=== PATIENT | female | born 1955 | race Caucasian/White ===

== ENCOUNTER 2019-08-31 09:12 | Outpatient (CLI) | payer MEDICARE, OTHER, SELFPAY ==
--- NOTE | ~2019-08-31 | CT_ITS ---
EXAMINATION: CT chest high resolution wo hi EXAM DATE: 08/31/2019 09:37 INDICATION: Shortness of breath, past smoker. TECHNIQUE: Spiral CT of the chest without contrast. HRCT. Axial, coronal and sagittal images were re viewed. Coronal maximum intensity pixel images of chest reviewed. The dose-length product (DLP) for this examination was 136.63 mGy-cm. The exposure was tailored according to patient size (auto mA ex posure control), and iterative reconstruction (ASIR) was used as additional dose reduction technique. Comparison is made to prior examination from 12/05/2016. FINDINGS: There are multiple scattered pulmonary nodules 4 mm or less, most unchanged but some are n ew compared to prior study. Most likely granulomas. There are no pleural or pericardial effusions. Tracheobronchial tree is patent. There is no mediastinal, hilar or axillary lymphadenopathy. Ther e is no pneumothorax. Heart normal in size. There is moderate coronary arterial calcification, ar terial sclerosis. Surgical changes from gastric bypass and cholecystectomy. There is moderate thorac ic spondylosis without osteoblastic or osteolytic lesions identified. IMPRESSION: 1. Scattered small nodules likely postinfectious. Reviewed, dictated and finalized at location A.
--- NOTE | 2019-08-31 10:48 | PCRCNOTE ---
UNABLE TO COMPLETE 6MWT, PT RECENTLY BROKE HER FOOT, WILL NEED TO RESCHEDULE AT A LATER DATE.
--- NOTE | 2019-09-16 12:51 | WPDPFTINT ---
PFT Interpretation PFT Interpretation: DOS: 08/31/2019 REQUESTING: Dr. Cox REASON FOR TESTING: Shortness of breath with exertion PULMONARY FUNCTION TESTS There results are reproducible. Spirometry: FEV1 120%, normal. FVC 107%. Normal FEV1%. FEF25/75 is 116%, increased 27% with bronchodilator. Lung volumes: Total lung capacity 114% normal. Increased residual volume 127% consistent with air trapping. Normal airway resistance. Diffusion: DLCO 106% normal. Flow volume loop: Normal. IMPRESSION: Mild air trapping which is consistent with an obstructive process. Lung volumes are higher than expected, a normal variant. There is a significant response to bronchodilator in the small airways which can be seen in asthma. Clinical correlation is recommended. Maryana Chan MD
== END 2019-08-31 09:13 | disposition home or self-care (01) ==
PROVIDERS: PCP Nurse Practitioner Family; Visit Provider Internal Medicine Critical Care Medicine
DX: R06.02 Shortness of breath (principal); R91.8 Other nonspecific abnormal finding of lung field
CPT/HCPCS: 71250; 94060; 94726; 94729

== ENCOUNTER 2019-10-20 11:29 | Outpatient (CLI) | payer MEDICARE, OTHER, SELFPAY | END 2019-10-20 11:30 | disposition home or self-care (01) | PROVIDERS: PCP Nurse Practitioner Family; Visit Provider Internal Medicine Critical Care Medicine | DX: R06.02 Shortness of breath (principal) | CPT/HCPCS: 36415; 86331; 86606; 86609 ==

== ENCOUNTER 2020-04-24 10:02 | Outpatient (CLI) | payer MEDICARE, OTHER, SELFPAY ==
[2020-04-24 10:00] VITALS: PULSE 76; O2SAT 95
[2020-04-24 10:05] VITALS: PULSE 80; O2SAT 84
[2020-04-24 10:10] VITALS: PULSE 88; O2SAT 85
[2020-04-24 10:15] VITALS: PULSE 89; O2SAT 87
[2020-04-24 10:20] VITALS: PULSE 87; O2SAT 90
[2020-04-24 10:35] VITALS: PULSE 80; O2SAT 94
--- NOTE | 2020-04-24 14:55 | HOMEO2EVAL ---
Home Oxygen Evaluation RC: Home Oxygen (O2) Evaluation Start: 04/24/20 14:52 Freq: Status: Active Protocol: RPE Activity Type Activity Date Activity User E-Sign Co-Sign Detail Recorded Client Recorded Date Recorded By Document 04/24/20 10:00 [email or web address] [email or web address] 04/24/20 14:55 DJO Document 04/24/20 10:05 DJO [email or web address] 04/24/20 14:55 DJO Document 04/24/20 10:10 [email or web address] [email or web address] 04/24/20 14:55 DJO Document 04/24/20 10:15 [email or web address] [email or web address] 04/24/20 14:55 DJO Document 04/24/20 10:20 [email or web address] [email or web address] 04/24/20 14:55 DJO Document 04/24/20 10:35 [email or web address] [email or web address] 04/24/20 14:55 DJO 04/24/20 04/24/20 04/24/20 10:00 10:05 10:10 Home O2 Evaluation Test Phase Resting Exercise Exercise Oxygen Delivery Room Air Room Air Nasal Cannula Oxygen Flow Rate (L/min) 1 Pulse Oximetry (90-100 %) 95 84 L 85 L Pulse Rate (60-100 beats/min) 76 80 88 Activity Tolerance Ambulation Distance (feet) 04/24/20 04/24/20 04/24/20 10:15 10:20 10:35 Home O2 Evaluation Test Phase Exercise Exercise Resting Oxygen Delivery Nasal Cannula Nasal Cannula Room Air Oxygen Flow Rate (L/min) 2 3 Pulse Oximetry (90-100 %) 87 L 90 94 Pulse Rate (60-100 beats/min) 89 87 80 Activity Tolerance Good Ambulation Distance (feet) 700
== END 2020-04-24 10:03 | disposition home or self-care (01) ==
LOC: ANHPFT 10:03
PROVIDERS: PCP Nurse Practitioner Family; Visit Provider Internal Medicine Critical Care Medicine
DX: R06.02 Shortness of breath (principal)
CPT/HCPCS: 94618

== ENCOUNTER 2021-11-08 14:05 | Outpatient (CLI) | payer MEDICARE, OTHER, SELFPAY ==
--- NOTE | ~2021-11-08 | MM_ITS ---
EXAMINATION: MM screening gilberto BI w yesica HISTORY: Screening mammogram, family history of breast cancer in her mother. TECHNIQUE: Craniocaudal and mediolateral oblique 3-D tomosynthesis images were obtained and synthetic 2-D images were generated. CAD analysis was submitted and interpreted. COMPARISON: 10/07/2017, 05/27/2016 BREAST PARENCHYMAL COMPOSITION: The breasts are almost entirely fatty. FINDINGS: There is no suspicious mass, calcification, or architectural distortion to suggest malignan cy in either breast. There has been no suspicious interval change. IMPRESSION: 1. No mammographic evidence of malignancy. 2. Recommend routine screening mammography in one year. BI-RADS Category 1: Negative Reviewed, dictated and finalized at location A.
--- NOTE | ~2021-11-08 | DEXA_ITS ---
Bone Density Report Name: KB FIGUEROA Age: 65 Sex: Female Ethnicity: White Date of : 1955 Indication: osteopenia; height loss; prior fracture; cancer; asthma or emphysema; postmenopausal Referring Provider: LILLIAN, TUYET Study: Bone densitometry was performed. Exam Date: November 08, 2021 Accession number: [id number] Bone Density: Region BMD T-score Z-score Classification AP Spine(L1-L4) 0.959 -0.8 1.1 Normal Femoral Neck (Left) 0.586 -2.4 -0.8 Osteopenia Total Hip (Left) 0.639 -2.5 -1.2 Osteoporosis Femoral Neck (Right) 0.610 -2.1 -0.5 Osteopenia Total Hip (Right) 0.632 -2.5 -1.2 Osteoporosis Total Hip Mean 0.636 -2.5 -1.2 Osteoporosis World Health Organization criteria for BMD impression classify patients as: Normal (T-score at or above -1.0), Osteopenia (T-score between -1.0 and -2.5), or Osteoporosis (T-score at or below -2.5). 10-year Fracture Risk: FRAX not reported because: Some T-score for Spine Total or Hip Total or Femoral Neck at or below -2.5 Previous Exams: Region Exam Age BMD T-score BMD Change BMD Change Date g/cm2 vs Baseline vs Previous AP Spine (L1-L4) 11/08/2021 65 0.959 -0.8 -0.223 (-18.9% -0.046 (-4.6%) 10/07/2017 61 1.005 -0.4 -0.177 (-15.0% -0.085 (-7.8%) 04/07/2015 59 1.091 0.4 -0.091 (-7.7%) -0.091 (-7.7%) 12/03/2012 56 1.182 1.2 Total Hip(Left) 11/08/2021 65 0.639 -2.5 -0.244 (-27.6% -0.111 (-14.8% 10/07/2017 61 0.751 -1.6 -0.133 (-15.1% -0.066 (-8.0%) 04/07/2015 59 0.816 -1.0 -0.068 (-7.6%) -0.068 (-7.6%) 12/03/2012 56 0.884 -0.5 Total Hip(Right) 11/08/2021 65 0.632 -2.5 -0.217 (-25.6% -0.127 (-16.7% 10/07/2017 61 0.759 -1.5 -0.090 (-10.6% -0.032 (-4.0%) 04/07/2015 59 0.791 -1.2 -0.058 (-6.9%) -0.058 (-6.9%) 12/03/2012 56 0.849 -0.8 *Denotes significance at 95% confidence level, LSC for AP Spine = 0.022 g/cm2, LSC for Total Hip = 0.027 g/cm2 # Denotes dissimilar scan types or analysis methods Clinical Information Provided by Patient: Has had a low trauma fracture Has used the following medications: Vitamin D Has the following medical conditions: Asthma or Emphysema, Cancer Patient maximum height was 68 Menopause Age: 49 No regular weight bearing exercise Drinks caffeinated beverages Onset of menses at age 11 Number of children 5 Impression: The patient has established osteoporosis, based on the Left Total Hip T-score and th
== END 2021-11-08 14:06 | disposition home or self-care (01) ==
PROVIDERS: PCP Nurse Practitioner Family; Visit Provider Nurse Practitioner Family
DX: Z12.31 Encounter for screening mammogram for malignant neoplasm of breast (principal); Z78.0 Asymptomatic menopausal state; M81.0 Age-related osteoporosis without current pathological fracture; M85.852 Other specified disorders of bone density and structure, left thigh; M85.851 Other specified disorders of bone density and structure, right thigh
CPT/HCPCS: 77063; 77067; 77080

== ENCOUNTER 2022-10-31 16:09 | Emergency (ER) | payer MEDICARE, OTHER, SELFPAY ==
--- NOTE | ~2022-10-31 | XR_ITS ---
EXAMINATION: XR chest 2V DATE: 10/31/2022 16:37 INDICATION: Dyspnea. TECHNIQUE: Frontal and lateral views of the chest were obtained. COMPARISON: Chest 2 views 10/27/2018 FINDINGS: There is mild scarring at the lung apices. There is mild atelectasis in left lower lung zon e. No pleural effusion or pneumothorax. The heart size is normal. Surgical clips in the right upper q uadrant are likely from cholecystectomy. IMPRESSION: 1. Mild atelectasis in left lower lung zone and mild scarring at the lung apices. Reviewed, dictated and finalized at location E. IMPRESSION: 1. Mild atelectasis in left lower lung zone and mild scarring at the lung apice s.
--- NOTE | ~2022-10-31 | CT_ITS ---
EXAMINATION: CT pelvis wo con DATE: 10/31/2022 17:39 INDICATION: Bilateral hip pain. Fall. TECHNIQUE: Computed tomography (CT) of the pelvis was performed without intravenous contrast. Automat ed exposure control and iterative reconstruction technique were employed. The dose-length product was 263.31 mGy-cm. COMPARISON: CT abdomen and pelvis 03/24/2018 FINDINGS: There is a calcified fibroid in the uterus. There are no pathologically enlarged lymph node s. There is no free intraperitoneal fluid. There is a filter in the inferior vena cava. Bone alignmen t is normal. No fracture. There is mild osteoarthritis of the hips. There is severe osteoarthritis of right sacroiliac joint and moderate osteoarthritis of left sacroiliac joint. There is moderate lumba r spondylosis. Osteitis pubis is noted. IMPRESSION: 1. No fracture. 2. Mild osteoarthritis of the hips. Reviewed, dictated and finalized at location E.
--- NOTE | ~2022-10-31 | CT_ITS ---
EXAMINATION: CT brain wo con DATE: 10/31/2022 17:38 INDICATION: Head injury. TECHNIQUE: Computed tomography (CT) of the head was performed without intravenous contrast. The mA wa s adjusted according to patient size. Iterative reconstruction technique was employed. The dose-lengt h product was 908.00 mGy-cm. COMPARISON: Head CT 10/11/2014 FINDINGS: There is no intracranial hemorrhage, acute infarction, or abnormal intracranial mass lesion . The ventricles are normal in size. There is mucosal thickening in the paranasal sinuses. There are likely changes of ocular lens replacement surgeries. The mastoid air cells are normal. IMPRESSION: 1. Normal brain. Reviewed, dictated and finalized at location E. IMPRESSION: 1. Normal brain.
[2022-10-31 16:14] VITALS: BP 115/72; PULSE 88; RESP 16; TEMP 37.2; O2SAT 99
--- NOTE | 2022-10-31 16:16 | ECG_ITS ---
Measurements Intervals [place] Rate: 96 P: 77 MI: 218 QRS: 34 QRSD: 86 T: 27 QT: 335 QTc: 424 Interpretive Statements SINUS RHYTHM EARLY PRECORDIAL R/S TRANSITION BORDERLINE ST-T WAVE ABNORMALITY- ANT/INF LEADS BASELINE ARTIFACT- I, II, III, AVR, AVL, AVF, V1-V6 BORDERLINE ECG COMPARED TO ECG 10/27/2018 18:21:48 NO SIGNIFICANT CHANGES Electronically Signed On 10-31-2022 21:07:58 CDT by See Avila D.O.
[2022-10-31 16:37] LABS: Basophils Percent Auto 0.5 % (0.2-1.2); Eosinophils Absolute Auto 0.1 K/mm3 (0-0.3); Eosinophils Percent Auto 1.4 % (0-4.4); Hematocrit 40.9 % (37.0-47.0); Hemoglobin 13.6 g/dL (12.0-15.0); Immature Granulocyte Absolute 0.01 K/mm3 (0.00-0.031); Immature Granulocyte Percent A 0.1 % (0-0.5); Lymphocytes Absolute Auto 2.64 K/mm3 (0.9-3.2); Lymphocytes Percent Auto 30.6 % (18.3-44.2); Mean Corpuscular HGB Conc 33.3 g/dl (32-36); Mean Corpuscular Hemoglobin 28.9 pg (26-34); Mean Platelet Volume 11.3 fl (7.4-10.4); Monocytes Absolute Auto 0.6 K/mm3 (0.1-0.6); Monocytes Percent Auto 7.2 % (2.6-8.5); Neutrophils Absolute Auto 5.2 K/mm3 (1.3-6.7); Neutrophils Percent Auto 60.2 % (45.5-73.1); Platelet Count Result 309 k/mm3 (150-375); Red Cell Distribution Width 12.3 % (11.5-14.5); White Blood Count 8.6 K/mm3 (4.5-10.0)
[2022-10-31 16:52] LABS: Alanine Aminotransferase 18 U/L (6-35); Albumin Level 4.6 g/dL (3.5-5.1); Alkaline Phosphatase 88 U/L (38-126); Anion Gap 9 mmol/L (8-16); Aspartate Amino Transferase 31 U/L (14-36); Bilirubin,Total 0.8 mg/dL (0.2-1.3); Blood Urea Nitrogen 16 mg/dL (7-17); Carbon Dioxide 32 mmol/L (22-30); Chloride 97 mmol/L (98-107); Estimated CRCL calculation 28 ml/min; Estimated Glomerular Filt Rate 35; Glucose 98 mg/dL (65-110); Potassium 2.8 mmol/L (3.4-5.0); Sodium 138 mmol/L (137-145)
--- NOTE | 2022-10-31 17:22 | ED.GENADULT ---
HPI - General Adult General Chief complaint: Shortness of Breath/Dyspnea <Jessica Caceres PA-C - Last Filed: 10/31/22 20:21> Stated complaint: Shortness of breath <SHAI Figueroa Last Filed: 10/31/22 20:21> Time Seen by Provider: 10/31/22 16:36 <SHAI Figueroa Last Filed: 10/31/22 20:21> Source: patient <SHAI Figueroa Last Filed: 10/31/22 20:21> Mode of arrival: ambulatory <SHAI Figueroa Last Filed: 10/31/22 20:21> Limitations: no limitations <SHAI Figueroa Last Filed: 10/31/22 20:21> History of Present Illness HPI narrative: Patient is a 66-year-old female, with PMH of COPD/asthma chronically on 3L NC, who presents to the ED with multiple complaints. Patient's main concern is having pain in all of her bones for the past 1+ year. She states she has several allergies to medications and is only able to take tramadol for pain. She does have a prescription for this at home. She reports a history of frequent falls recently. She states she fell 2 weeks ago and fell onto her right hip. She complains of pain to her bilateral hips. She fell again this morning trying to get out of bed and did hit her head on the nightstand. Denied LOC. Denied any dizziness or lightheadedness prior to the falls. She states she just becomes weak and falls. Patient lives with family. She denies abdominal pain, vision changes, cough or cold symptoms, worsening shortness of breath, chest pain, fevers, numbness, focal weakness, syncope. <SHAI Figueroa Last Filed: 10/31/22 20:21> Related Data Home medications: Home Medications Medication Instructions Recorded Confirmed diphenhydramine HCl 50 mg capsule 50 mg PO Q6H PRN 08/10/19 10/05/20 ergocalciferol (vitamin D2) 1,250 1,250 mcg PO WEEKLY 08/10/19 10/05/20 mcg (50,000 unit) capsule (Vitamin D2) furosemide 80 mg tablet 80 mg PO QAM 08/10/19 10/05/20 loratadine 10 mg tablet 10 mg PO DAILY 08/10/19 10/05/20 montelukast 10 mg tablet 10 mg PO DAILY 08/10/19 10/05/20 (Singulair) nitroglycerin 0.4 mg sublingual 0.4 mg sublingual Q5M PRN 08/10/19 10/05/20 tablet ondansetron HCl 8 mg tablet 8 mg PO Q8H 08/10/19 10/05/20 pantoprazole 40 mg tablet,delayed 40 mg PO QAM 08/10/19 10/05/20 release potassium chloride 10 mEq 10 meq PO DAILY 08/10/19 10/05/20 tablet,extended release rivaroxaban 20 mg tablet 20 mg PO DAILY 08/10/19 10/05/20 ropinirole 0.5 mg tablet 0.5 mg PO BID 08/10/19 10/05/20 spironolactone 25 mg tablet 25 mg PO DAILY 08/10/19 10/05/20 sucralfate 1 gram tablet 1 gm PO TID 08/10/19 10/05/20 tramadol 50 mg tablet 50 mg PO Q6H PRN 08/10/19 10/05/20 lorazepam 2 mg tablet (Ativan) 2 mg PO DAILY PRN 08/11/19 10/05/20 pseudoephedrine HCl 120 mg 120 mg PO Q12H 10/08/19 10/05/20 tablet,extended release (Sudafed 12 Hour) cyanocobalamin (vitamin B-12) 1,000 mcg subcut MONTHLY 10/12/19 10/05/20 1,000 mcg/mL injection kit <Jessica Caceres PA-C - Last Filed: 10/31/22 20:21> Allergies/adverse reactions: Allergies Allergy/AdvReac Type Severity Reaction Status Date / Time codeine Allergy Severe HIVES Verified 10/31/22 16:10 fluoxetine Allergy Severe HIVES Verified 10/31/22 16:10 hydrocodone Allergy Severe HIVES Verified 10/31/22 16:10 iodine Allergy Unknown N/V Verified 10/31/22 16:10 morphine Allergy Unknown Unknown Verified 10/31/22 16:10 prednisone Allergy Unknown Palpitation Verified 10/31/22 16:10 s theophylline Allergy Unknown Hives / Verified 10/31/22 16:10 Red Face Contrast Media Allergy Unknown Unknown Uncoded 10/31/22 16:10 <Jessica Caceres PA-C - Last Filed: 10/31/22 20:21> Review of Systems Review of Systems: CONSTITUTIONAL: Denies fever, chills, or sweats. EYES: Denies visual changes. CARDIOVASCULAR: Denies chest pain. RESPIRATORY: Denies cough or dyspnea. GASTROINTESTINAL: See HPI. MUSCULOSKELETAL: See
[2022-10-31 17:31] LABS: Magnesium 2.3 mg/dL (1.6-2.3)
[2022-10-31 17:43] LABS: Troponin I < 0.012 ng/mL (0.000-0.034)
[2022-10-31] MEDS: SODIUM CHLORIDE 0.9% IV 1,000 ML 999 ML IV CONT (17:49)
[2022-10-31] MEDS: POTASSIUM CHLORIDE 20 MEQ PACKET (FOR LIQUID) 40 MEQ PO ×2 (18:25→21:56)
[2022-10-31] MEDS: traMADol HCL (*CRX) 50 MG TABLET PO (18:25)
[2022-10-31] MEDS: KCL 20 MEQ/SW 100 ML 100 ML 50 MEQ IVPB (19:11)
[2022-10-31 19:14] VITALS: BP 93/79; PULSE 67; RESP 18; O2SAT 100
[2022-10-31 19:56] VITALS: BP 113/94; PULSE 63; RESP 18; O2SAT 99
[2022-10-31 21:46] LABS: Anion Gap 3 mmol/L (8-16); Blood Urea Nitrogen 15 mg/dL (7-17); Calcium 8.1 mg/dL (8.4-10.2); Carbon Dioxide 38 mmol/L (22-30); Chloride 98 mmol/L (98-107); Estimated CRCL calculation 30 ml/min; Estimated Glomerular Filt Rate 38; Glucose 91 mg/dL (65-110); Potassium 3.1 mmol/L (3.4-5.0); Sodium 139 mmol/L (137-145)
== END 2022-10-31 23:26 | disposition home or self-care (01) ==
PROVIDERS: Emergency Medicine; Emergency Provider Physician Assistant; PCP Nurse Practitioner Family
DX: R52 Pain, unspecified (principal); R06.02 Shortness of breath; I50.9 Heart failure, unspecified; J44.9 Chronic obstructive pulmonary disease, unspecified; E87.6 Hypokalemia; F41.9 Anxiety disorder, unspecified; Z79.01 Long term (current) use of anticoagulants; Z87.891 Personal history of nicotine dependence; W06.XXXA Fall from bed, initial encounter
CPT/HCPCS: 36415; 70450; 71046; 72192; 80048; 80053; 83735; 84484; 85025; 93005; 96361; 96365; 96366; 99284; A9270; J3480; J7030

== ENCOUNTER 2023-06-25 13:31 | Outpatient (CLI) | payer MEDICARE, OTHER, SELFPAY ==
[2023-06-25 14:40] VITALS: PULSE 78; O2SAT 97
[2023-06-25 15:10] VITALS: PULSE 90; O2SAT 95
[2023-06-25 15:15] VITALS: PULSE 80; O2SAT 100
--- NOTE | 2023-06-25 15:24 | HOMEO2EVAL ---
Evaluation was performed at [facility] Home Oxygen Evaluation RC: Home Oxygen (O2) Evaluation Start: 06/25/23 15:20 Freq: Status: Active Protocol: RPE Activity Type Activity Date Activity User E-sign Co-sign Detail Recorded Client Recorded Date Recorded By Document 06/25/23 14:40 [email or web address] [id number] 06/25/23 15:23 DJO Document 06/25/23 15:10 [email or web address] [email or web address] 06/25/23 15:23 DJO Document 06/25/23 15:15 [email or web address] [email or web address] 06/25/23 15:23 DJO 06/25/23 06/25/23 06/25/23 14:40 15:10 15:15 Home O2 Evaluation [Oxygen] -Test Phase Resting Exercise Resting -Oxygen Delivery Room Air Room Air Room Air [Pulse Oximetry] -Pulse Oximetry (90-100 %) 97 95 100 [Pulse Rate] -Pulse Rate (60-100 beats/min) 78 90 80 [Evaluation] -Activity Tolerance Good [Exercise] -Ambulation Distance (feet) 1,000 -Ambulation Distance (meters) 304.80 [Charges] -Evaluation Charges O2 Evaluation by Pulmonary
--- NOTE | 2023-06-25 16:58 | WPDPFTINT ---
PFT Procedure Performed PFT Procedure Performed Spirometry with Pre/Post Bronchodilator Plethysmography (Lung Vol) Diffusing Cap (DLCO) Flow Vol Loop PFT Interpretation This is a pulmonary function test with pre and post-bronchodilator spirometry, plethysmography and diffusing capacity. The test was performed and results interpreted in accordance with the 2019 and 2005 ATS/ERS Task Force guidelines respectively using the Global Lung Function Initiative-2012 reference equations. Patient demonstrated good effort and cooperation. Reproducibility criteria were met. The quality of the pre bronchodilator spirometry maneuver was Grade B and post bronchodilator spirometry maneuver was Grade B. Findings: Spirometry: The contour the inspiratory and expiratory flow tracing are normal. The pre bronchodilator FVC is 3.30 L, 105% predicted. The pre bronchodilator FEV1 is 2.58 L, 106% predicted. The pre bronchodilator FEV1: FVC ratio 78%. The post bronchodilator FVC is 3.31 L, representing no change. The post bronchodilator FEV1 is 2.65 L, representing a 2% increase. The post bronchodilator FEV1: FVC ratio was 80%. Plethysmography: The total lung capacity is 5.41 L, 101% predicted. The functional residual capacity is 4.08 L, 133% predicted. The residual volume is 2.10 L, 93% predicted. Diffusing capacity: The diffusing capacity unadjusted for hemoglobin and carboxyhemoglobin is 17.6, 82% predicted. The diffusing capacity adjusted for alveolar volume is 3.58, 85% predicted. In comparison to prior pulmonary function testing performed on 08/31/2019 the post bronchodilator FVC is unchanged from 3.25 L to 3.31 L. The post bronchodilator FEV1 is unchanged from 2.85 L to 2.65 L. The total lung capacity is unchanged from 6.02 L to 5.41 L. The functional residual capacity is unchanged from 4.50 L to 4.08 L. The residual volume is decreased from 2.59 L to 2.10 L. The diffusing capacity unadjusted for hemoglobin and carboxyhemoglobin is decreased from 21.2 to 17.6. The diffusing capacity adjusted for alveolar volume is decreased from 4.39 to 3.58. Impression: The spirometry is normal without evidence of an obstructive abnormality. There is no significant improvement after inhaling a single dose of albuterol. The lung volumes are normal. The diffusing capacity is normal. In comparison to prior pulmonary function testing on 08/31/2019 there has been a greater than anticipated time dependent decrease in the residual volume and diffusing capacity with no significant change in the FVC, FEV1, total lung capacity or functional residual capacity. Clinical correlation is recommended.
== END 2023-06-25 13:32 | disposition home or self-care (01) ==
LOC: ANHPFT 13:32
PROVIDERS: PCP Family Medicine; Visit Provider Physician Assistant
DX: J44.9 Chronic obstructive pulmonary disease, unspecified (principal); R09.02 Hypoxemia
CPT/HCPCS: 94060; 94618; 94726; 94729

== ENCOUNTER 2023-08-14 11:26 | Emergency (ER) | payer MEDICARE, OTHER, SELFPAY ==
--- NOTE | ~2023-08-14 | CT_ITS ---
EXAMINATION: CT brain wo con INDICATION: Weakness and fatigue COMPARISON: 10/31/2022 TECHNIQUE: Standard unenhanced head CT. The dose-length product (DLP) was 605.33 mGy-cm. The mA was a djusted according to patient size. Iterative reconstruction technique was employed. FINDINGS: No acute intraparenchymal hemorrhage. No evidence of mass lesion. No evidence of acute infa rction. There is mild periventricular and subcortical hypodensity probably related to small vessel is chemic disease. There is mild prominence of the sulci and ventricles related to cerebral atrophy. Int racranial calcified cerebral atherosclerosis is noted. No extra-axial collections. No mass effect or midline shift. Changes in the globes are likely from ocular lens surgery. The visualized sinuses and mastoid air cells are well aerated. IMPRESSION: 1. No acute intracranial abnormality. 2. Age related findings. Reviewed, dictated and finalized at location L. INE TOOL BUILDER
--- NOTE | ~2023-08-14 | CT_ITS ---
EXAMINATION: CT abdomen pelvis wo con DATE: 08/14/2023 13:41 INDICATION: Weakness and fatigue, right upper quadrant pain TECHNIQUE: Computed tomography (CT) of the abdomen and pelvis was performed without intravenous contr ast. The dose-length product (DLP) was 473.51 mGy-cm. Automated exposure control and iterative recons truction technique were employed. COMPARISON: 03/24/2018 FINDINGS: Minimal dependent atelectasis is present in the lung bases. The heart size is normal. There are surgical changes in the stomach. Changes of cholecystectomy are noted. There is chronic pneumobi ene. The spleen, pancreas, and right adrenal gland are normal. There are stable adenomas of the left adrenal gland. The right kidney is unremarkable. There is a 2.9 cm cyst of the left kidney. Inferior vena cava filter is noted. No pathologically enlarged abdominal or pelvic lymph nodes are identified. No free intraperitoneal gas or evidence of bowel obstruction. There is moderate lumbar spondylosis. There is chronic sclerosis of the sacroiliac joints, right greater than left. IMPRESSION: 1. No CT correlate for the patient's symptoms. Reviewed, dictated and finalized at location L. CENTER ASSISTANT
--- NOTE | ~2023-08-14 | XR_ITS ---
EXAMINATION: XR chest 2V DATE: 08/14/2023 13:44 INDICATION: Generalized fatigue TECHNIQUE: AP and lateral views of the chest are obtained. COMPARISON: 10/31/2022 FINDINGS: The lungs are free of acute opacities. No pleural effusion or pneumothorax. The cardiomedia stinal silhouette is normal. There is moderate thoracic spondylosis. IMPRESSION: 1. No acute cardiopulmonary abnormality. Reviewed, dictated and finalized at location L. ARE ADVISER
[2023-08-14 11:36] VITALS: BP 122/67; PULSE 86; RESP 20; TEMP 36.4; O2SAT 100
--- NOTE | 2023-08-14 12:09 | ED.SOB ---
HPI - SOB/Dyspnea General Chief Complaint: Shortness of Breath/Dyspnea Stated Complaint: SOB Time Seen by Provider: 08/14/23 12:08 Source: patient and family Mode of arrival: ambulatory Limitations: no limitations History of Present Illness HPI Narrative: 67 years old white female came to the emergency room by private car complaining of general weakness and foggy brain since had COVID April 2023. Currently patient denies any fever, chills, nausea, vomiting, chest pain, shortness of breath or headache. Patient did not take her out with her pills over 2 days, patient on Xarelto. Patient is depressed well with her last away advised the [facility] area Related Data Home Medications Medication Instructions Recorded Confirmed diphenhydramine HCl 50 mg capsule 50 mg PO Q6H PRN 08/10/19 08/12/23 ergocalciferol (vitamin D2) 1,250 1,250 mcg PO WEEKLY 08/10/19 08/12/23 mcg (50,000 unit) capsule (Vitamin D2) furosemide 80 mg tablet 80 mg PO QAM 08/10/19 08/12/23 loratadine 10 mg tablet 10 mg PO DAILY 08/10/19 08/12/23 montelukast 10 mg tablet 10 mg PO DAILY 08/10/19 08/12/23 (Singulair) nitroglycerin 0.4 mg sublingual 0.4 mg sublingual Q5M PRN 08/10/19 08/12/23 tablet ondansetron HCl 8 mg tablet 8 mg PO Q8H 08/10/19 08/12/23 pantoprazole 40 mg tablet,delayed 40 mg PO QAM 08/10/19 08/12/23 release potassium chloride 10 mEq 10 meq PO DAILY 08/10/19 08/12/23 tablet,extended release rivaroxaban 20 mg tablet 20 mg PO DAILY 08/10/19 08/12/23 ropinirole 0.5 mg tablet 0.5 mg PO BID 08/10/19 08/12/23 spironolactone 25 mg tablet 25 mg PO DAILY 08/10/19 08/12/23 sucralfate 1 gram tablet 1 gm PO TID 08/10/19 08/12/23 pseudoephedrine HCl 120 mg 120 mg PO Q12H 10/08/19 08/12/23 tablet,extended release (Sudafed 12 Hour) cyanocobalamin (vitamin B-12) 1,000 mcg subcut MONTHLY 10/12/19 08/12/23 1,000 mcg/mL injection kit tramadol 50 mg tablet 100 mg PO Q6H PRN 08/12/23 08/12/23 Allergies Allergy/AdvReac Type Severity Reaction Status Date / Time codeine Allergy Severe HIVES Verified 08/12/23 10:27 fluoxetine Allergy Severe HIVES Verified 08/12/23 10:27 hydrocodone Allergy Severe HIVES Verified 08/12/23 10:27 iodine Allergy Unknown N/V Verified 08/12/23 10:27 morphine Allergy Unknown Unknown Verified 08/12/23 10:27 prednisone Allergy Unknown Palpitation Verified 08/12/23 10:27 s theophylline Allergy Unknown Hives / Verified 08/12/23 10:27 Red Face Contrast Media Allergy Unknown Hives Uncoded 08/14/23 13:19 Review of Systems Review of Systems: All systems reviewed & are unremarkable except as noted in HPI and below PMFSH Past Medical History Medical History Acute anxiety Biliary stenosis CKD (chronic kidney disease) stage 3, GFR 30-59 ml/min Complicated bereavement COPD (chronic obstructive pulmonary disease) Essential thrombocytosis GERD (gastroesophageal reflux disease) Spastic intestine Surgical History Surgical History History of appendectomy Hx of gastric bypass No pertinent past surgical history Family History Family History Father Hypertension Family history of diabetes mellitus in first degree relative Family history of coronary artery disease Mother Hypertension Family history of diabetes mellitus in first degree relative Family history of coronary artery disease Family history of malignant neoplasm of breast in first degree relative Cerebrovascular accident Heart disease Breast cancer, Onset Age: 74 insitu Sibling Hypertension, Onset Age: 200 Family history of coronary artery disease, Onset Age: 200 Patient's brother is Acute myocardial infarction Sibling COVID-19 long hauler Hyperlipidemia Other Family history of malignant neoplasm of ovary Social History Social History
[2023-08-14 12:45] VITALS: BP 103/76; PULSE 78; RESP 16; TEMP 36.7; O2SAT 97
--- NOTE | 2023-08-14 13:02 | ECG_ITS ---
Measurements Intervals [place] Rate: 78 P: 82 TN: 171 QRS: 12 QRSD: 82 T: 55 QT: 379 QTc: 432 Interpretive Statements SINUS RHYTHM WITH FREQUENT SUPRAVENTRICULAR PREMATURE COMPLEXES LOW-VOLTAGE QRS ABNORMAL RHYTHM ECG COMPARED TO ECG 10/31/2022 16:22:41 NO SIGNIFICANT CHANGES, CURRENT EKG IS OF BETTER QUALITY Electronically Signed On 08-15-2023 12:11:04 [employer] by Luiz Lance M.D.
--- NOTE | 2023-08-14 13:20 | PC.NURSE ---
verified allergy for contrast with patient, reaction is hives. discussed with provider, ok to modify order to be without contrast dye
[2023-08-14 13:26] LABS: Basophils Percent Auto 0.5 % (0.2-1.2); Eosinophils Absolute Auto 0.1 K/mm3 (0-0.3); Eosinophils Percent Auto 2.2 % (0-4.4); Hemoglobin 11.1 g/dL (12.0-15.0); Immature Granulocyte Absolute 0.01 K/mm3 (0.00-0.031); Immature Granulocyte Percent A 0.2 % (0-0.5); Lymphocytes Absolute Auto 1.81 K/mm3 (0.9-3.2); Lymphocytes Percent Auto 33.1 % (18.3-44.2); Mean Corpuscular HGB Conc 30.8 g/dl (32-36); Mean Corpuscular Hemoglobin 28.1 pg (26-34); Mean Corpuscular Volume 91.1 fl (80-100); Mean Platelet Volume 11.2 fl (7.4-10.4); Monocytes Absolute Auto 0.5 K/mm3 (0.1-0.6); Monocytes Percent Auto 8.4 % (2.6-8.5); Neutrophils Percent Auto 55.6 % (45.5-73.1); Platelet Count Result 223 k/mm3 (150-375); Red Blood Count 3.95 M/mm3 (4.2-5.4); Red Cell Distribution Width 12.5 % (11.5-14.5); White Blood Count 5.5 K/mm3 (4.5-10.0)
[2023-08-14 13:35] LABS: Alanine Aminotransferase 13 U/L (6-35); Albumin Level 3.7 g/dL (3.5-5.1); Alkaline Phosphatase 78 U/L (38-126); Anion Gap 2 mmol/L (8-16); Aspartate Amino Transferase 31 U/L (14-36); Bilirubin,Total 0.6 mg/dL (0.2-1.3); Blood Urea Nitrogen 14 mg/dL (7-17); Calcium 8.5 mg/dL (8.4-10.2); Carbon Dioxide 29 mmol/L (22-30); Chloride 108 mmol/L (98-107); Estimated CRCL calculation 44 ml/min; Estimated Glomerular Filt Rate 55; Glucose 84 mg/dL (65-110); INR 1.4; Lipase 208 U/L (23-300); Potassium 3.7 mmol/L (3.4-5.0); Prothrombin Time 18.2 Seconds (11.1-14.7); Sodium 139 mmol/L (137-145)
[2023-08-14 13:36] LABS: Partial Thromboplastin Time 32.9 SECONDS (22.3-36.8)
[2023-08-14 13:46] VITALS: BP 145/76; PULSE 71; RESP 16; TEMP 36.7; O2SAT 100
[2023-08-14 13:47] LABS: Troponin I < 0.012 ng/mL (0.000-0.034)
[2023-08-14] MEDS: HYDROmorphone HCL INJ (*CRX) 1 MG/ML SYR 0.5 MG IV PUSH (13:55)
[2023-08-14] MEDS: ONDANSETRON INJ 4 MG/2 ML VIAL IV PUSH (13:56)
[2023-08-14] MEDS: SODIUM CHLORIDE 0.9% IV 1,000 ML 999 ML IV CONT (13:56)
[2023-08-14 14:01] VITALS: BP 135/67; PULSE 75; RESP 16; O2SAT 98
[2023-08-14 15:31] VITALS: BP 126/63; PULSE 81; RESP 16; TEMP 36.6; O2SAT 100
[2023-08-14 16:11] LABS: Appearance Urine Clear (Clear); Bacteria Urine None Seen /hpf; Bilirubin Urine Negative (Negative); Blood Urine Negative (Negative); Color Urine Yellow (Yellow); Glucose Urine UA Negative (Negative); Ketones Urine 1+ mg/dL (Negative); Leukocyte Esterase Ur 1+ LEU/UL (Negative); Need Manual Microscopic Reviewed; Nitrate Urine Negative (Negative); Non Pathogenic Casts 0-2; Protein Urine Negative (Negative); RBC Urine 0-2 /hpf (0-2); Specific Grav Ur 1.018 (1.001-1.035); Squamous Epithelial Cell Urine None seen /hpf (Few); WBC Urine 0-5 /hpf; pH Urine 7.5 (5.0-9.0)
[2023-08-14 16:12] LABS: Add Urine Microscopic? YES
[2023-08-14 16:30] VITALS: BP 124/63; PULSE 76; RESP 16; TEMP 36.7; O2SAT 98
== END 2023-08-14 16:55 | disposition home or self-care (01) ==
PROVIDERS: Emergency Provider Emergency Medicine; PCP Family Medicine
DX: R53.1 Weakness (principal); U09.9 Post COVID-19 condition, unspecified; F32.A Depression, unspecified; I12.9 Hypertensive chronic kidney disease with stage 1 through stage 4 chronic kidney disease, or unspecified chronic kidney disease; N18.30 Chronic kidney disease, stage 3 unspecified; J44.9 Chronic obstructive pulmonary disease, unspecified; K21.9 Gastro-esophageal reflux disease without esophagitis; Z98.84 Bariatric surgery status; Z87.891 Personal history of nicotine dependence; Z79.01 Long term (current) use of anticoagulants
CPT/HCPCS: 36415; 70450; 71046; 74176; 80053; 81001; 83690; 84484; 85025; 85610; 85730; 93005; 96361; 96374; 96375; 99284; J1170; J2405; J7030

== ENCOUNTER 2024-09-24 12:49 | Outpatient (CLI) | payer MEDICARE, OTHER, SELFPAY ==
--- OUTSIDE RECORDS SUMMARY | 2024-09-24 12:54 | XMS_ITS | Encounter Summary ---
Author Organization [facility] Healthcare Address [address] [place] [address] Care Team Providers Care General Assembler Name Role Phone Ralph Esteves MD Unavailable [phone] Simeon Pelaez MD Unavailable [phone] Jesús Becerra MD Unavailable [phone] Marie Carbajal NP Unavailable [phone] Luiz Lance MD Unavailable [phone] Stacey Gorman NP Primary Care Provider [phone] Encounter Details Date Type Department Care Team (Latest Contact Info) Description 09/08/2024 Results Follow-Up [facility] Medical Group Nephrology at [address] [place] [address] Jesús Becerra MD [facility] [address] [address] Stage 3a chronic kidney disease (HCC) (Primary Dx); Secondary hyperparathyroidism Social History Tobacco Use Types Packs/Day Years Used Date Smoking Tobacco: Former Cigarettes 1.5 25.1 0 11/21/1972 - 04/01/1994 Smokeless Tobacco: Never Comments:I quit smoking duri ng all of my pregnancies except with my youngest child I quit completly. Alcohol Use Standard Drinks/Week Comments No 0 (1 standard drink = 0.6 oz pur e alcohol) AUDIT-C Answer Date Recorded Q1: How often do you have a drink containing alc ohol? Never 03/10/2024 Average Number of Drinks Not on file 024 Frequency of Binge Drinking Not on file 02/21 PHQ-2 Answer Date Recorded PHQ-2 Total Score (If total score is 3 or more points, staff should administer the PHQ-9) 2 02/05/2023 Comments Unknown Sex and Gender Information Value Date Recorded Sex Assigned at Not on file Legal Sex Female 10:31 AM OB/GYN PHYSICIAN Gender Identity Female 10/13/2018 12:12 PM CDT Sexual Orientation Straight 10/13/2018 12 :12 PM CDT documented as of this encounter Plan of Treatment Scheduled Orders Name Type Priority Associated Diagnoses Orde r Schedule Basic metabolic panel Lab Routine Stage 3a chronic kidney disease (HCC) Secondary hyperparathyroidism Expected: 02/21/2025, Expires: 09/08/2025 Vitamin D 25 hydroxy Lab Routine Stage 3a chronic kidney disease (HCC) Secondary hyperparathyroidism Expected: 02/21/2025, Expires: 09/08/2025 PTH Lab Routine Stage 3a chronic kidney disease (HCC) Secondary hyperparathyroidism Expected: 02/21/2025, Expires: 09/08/2025 documented as of this encounter Visit Diagnoses Diagnosis Stage 3a chronic kidney disease (HCC)- Primary Secondary hyperparathyroidism Secondary hyperparathyroidism (of renal origin) documented in this encounter Care Teams General Assembler Relationship Specialty Start Date End Date Stacey Gorman NP [address] [place] [address] PCP - General Nurse Practitioner 06/25/24 Ralph Esteves MD Medical Oncologist/Hematologis t Hematology and Oncology 01/15/18 Simeon Pelaez MD [address] [address] Consulting Physician Gastroenterology 10/16/18 Jesús Becerra MD [address] [facility] [address] [place] [address] Consulting Physician Nephrology 01/12/21 Marie Carbajal NP [address] [facility] [address] [place] [address] Nurse Practitioner Neurology 02/05/23 Luiz Lance MD [address] [place] [address] Consulting Physician Cardiology 02/05/23 documented as of this encounter
--- OUTSIDE RECORDS SUMMARY | 2024-09-24 12:55 | XMS_ITS | Encounter Summary ---
Author Organization [facility] Address [facility]ly [facility] [place] [address] Care Team Providers Care Briquette Maker Name Role Phone Yasmany De Dios MD Unavailable [phone] Stacey Gorman Primary Care Provider [phone] Stacey Gorman Unavailable [phone] Encounter Details Date Type Department Care Team (Late st Contact Info) Description 04/11/2022 MyChart Message Enc [facility] Medical Group Family & Internal Medicine [facility] [address] [place] [address] Stacey Gorman FNP [address] [place], [place] [id number] Referral to the Pulmonology Department Social History Tobacco Use Types Packs/Day Years Used Date Smoking Tobacco: Former Cigarettes 1.5 20 1 954 - 1973 Smokeless Tobacco: Never Alcohol Use Standard Drinks/Week Comments No 0 (1 standard drink = 0.6 oz pur e alcohol) PHQ-2 Answer Date Recorded PHQ-2 Score - If the patient scores above 3, please move on to questions 3-9 1 05/07/2021 Comments No Sex and Gender Information Value Date Recorded Sex Assigned at Female 09/01/2023 8:14 AM CDT Legal Sex Female 9:36 PM CDT Gender Identity Female 09/01/2023 8:14 AM CDT Sexual Orientation Straight 09/01/2023 8: 14 AM CDT 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 documented in this encounter Plan of Treatment Not on file documented as of this encounter Visit Diagnoses Not on filedocumented in this encounter Additional Health Concerns Infection Onset Date Last Indicated Resolved Time COVID-19 Rule Out 11/30/2023 11/30/2023 11/30/2023 7:40 PM CDT Assessment Noted Time PHQ-9 Depression Total Score: 11 021 2:09 PM CAPACITY ANALYST documented as of this encounter Care Teams Briquette Maker Relationship Specialty Start Date End Date Stacey Gorman FNP [address] [place] [address] PCP - General FAMILY PRACTICE 05/15/18 Stacey Gorman FNP [address] [place] [address] PCP - Med Group - [facility] Attributed Provider 06/23/15 06/22/22 Yasmany De Dios MD [facility]. [address] [address] [place] Fruit Washer CARDIOVASCULAR DISEASE 01/22/16 documented as of this encounter
--- OUTSIDE RECORDS SUMMARY | 2024-09-24 12:55 | XMS_ITS | Encounter Summary ---
Author Organization [facility] Address [facility] [place] [address] Care Team Providers Care Supervisor Shed Workers Name Role Phone Yasmany De Dios MD Unavailable [phone] Stacey Gorman Primary Care Provider [phone] Stacey Gorman Unavailable [phone] Encounter Details Date Type Department Care Team (Late st Contact Info) Description 08/31/[address] [facility] Medical Group Family & Internal Medicine [facility] [address] [place] [address] Stacey Gorman FNP [address] [place] [address] Lab Social History Tobacco Use Types Packs/Day Years Used Date Smoking Tobacco: Former Cigarettes 1.5 20 1 154 1973 Smokeless Tobacco: Never Alcohol Use Standard [...] on file documented as of this encounter Plan of Treatment Not on file documented as of this encounter Visit Diagnoses Not on filedocumented in this encounter Additional Health Concerns Infection Onset Date Last Indicated Resolved Time COVID-19 Rule Out 11/30/2023 11/30/2023 11/30/2023 7:40 PM CDT Assessment Noted Time PHQ-9 Depression Total Score: 11 021 2:09 PM MEDICAL RECORDS COORDINATOR documented as of this encounter Care Teams Supervisor Shed Workers Relationship Specialty Start Date End Date Stacey Gorman FNP [address] [place] [address] PCP - General FAMILY PRACTICE 05/15/18 Stacey Gorman FNP [address] [place] [address] PCP - Med Group - MSSP Attributed Provider 06/23/15 06/22/22 Yasmany De Dios MD [facility] [address] [place] [address] [place] Equipment Operator Warehouse CARDIOVASCULAR DISEASE 01/22/16 documented as of this encounter
--- OUTSIDE RECORDS SUMMARY | 2024-09-24 12:55 | XMS_ITS | Encounter Summary ---
Author Organization [facility] Address [facility] [place] [address] Care Team Providers Care Him Tech Name Role Phone Yasmany De Dios MD Unavailable [phone] Stacey Gorman Primary Care Provider [phone] Encounter Details Date Type Department Care Team (Latest Contact Info) Description 09/24/2024 Travel Social History Tobacco Use Types Packs/Day Years Used Date Smoking Tobacco: Former Cigarettes Q uit: 1974 Passive Smoke Exposure: Past Smokeless Tobacco: Never Alcohol Use Standard Drinks/Week Comments No 0 (1 standard drink = 0.6 oz pur e alcohol) PHQ-2 Answer Date Recorded Patient Health Questionnaire-2 Score 0 10/06/2023 Comments No Sex and Gender Information Value [...] filedocumented in this encounter Additional Health Concerns Assessment Noted Time PHQ-9 Depression Total Score: 0 10/06/19 24 11:38 AM CDT documented as of this encounter Care Teams Him Tech Relationship Specialty Start Date End Date Stacey Gorman FNP [address] [place] [address] PCP - General FAMILY PRACTICE 05/15/18 Yasmany De Dios MD [facility]. [address] [address] [place] Provider Enrollment Specialist CARDIOVASCULAR DISEASE 01/22/16 documented as of this encounter
--- OUTSIDE RECORDS SUMMARY | 2024-09-24 12:55 | XMS_ITS | Encounter Summary ---
Author Organization [facility] Address [facility] [place] [address] Care Team Providers Care Environmental Sampling Technician Name Role Phone Yasmany De Dios MD Unavailable [phone] Stacey Gorman Primary Care Provider [phone] Stacey Gorman Unavailable [phone] Encounter Details Date Type Department Care Team (Late st Contact Info) Description 10/17/2021 MyChart Message Enc [facility] Medical Group Family & Internal Medicine [facility] [address] [place] [address] Stacey Gorman FNP [address] [place] [address] Ropinirole Social History Tobacco Use Types Packs/Day Years [...] as of this encounter Progress Notes * MUKUL Greene - 10/22/2021 4:37 PM CDT We can send the refills documented in this encounter Plan of Treatment Not on file documented as of this encounter Visit Diagnoses Not on filedocumented in this encounter Additional Health Concerns Infection Onset Date Last Indicated Resolved Time COVID-19 Rule Out 11/30/2023 11/30/2023 11/30/2023 7:40 PM CDT Assessment Noted Time PHQ-9 Depression Total Score: 11 05/07/ 021 2:09 PM BALLOON SANDER documented as of this encounter Care Teams Environmental Sampling Technician Relationship Specialty Start Date End Date Stacey Gorman FNP [address] [place] [address] PCP - General FAMILY PRACTICE 05/15/18 Stacey Gorman FNP [facility] [place] [address] PCP - Med Group - MSSP Attributed Provider 06/23/15 06/22/22 Yasmany De Dios MD Three [facility]. [address] [address] [place] Folded Cloth Taper CARDIOVASCULAR DISEASE 01/22/16 documented as of this encounter
--- OUTSIDE RECORDS SUMMARY | 2024-09-24 12:55 | XMS_ITS | Encounter Summary ---
Author Organization [facility] Address [facility] [place] [address] Care Team Providers Care Anesthesiologists' Assistant Name Role Phone Mich Dobson MD Primary Care Provider Yasmayn Vuong MD Unavailable [phone] Stacey Gorman Primary Care Provider [phone] Stacey Gorman Unavailable [phone] Encounter Details Date Type Department Care Team (Late st Contact Info) Description 10/09/2016 Abstract [facility] AT [address] [address] Shannan Morley, QUALITY ASSURANCE DIRECTOR Social History Tobacco Use Types Packs/Day Years Used Date Smoking Tobacco: Former Cigarettes Q uit: 1993 Smokeless Tobacco: Never Alcohol Use Standard Drinks/Week Comments No 0 (1 standard drink = 0.6 oz pur e alcohol) Comments Unknown Sex and Gender Information Value [...] on file documented as of this encounter Procedures Procedure Name Priority Date/Time Associated Diagnosis Comments LIPID PANEL Routine 09/17/2016 GLUCOSE BLOOD, QNT Routine 09/17/2016 documented in this encounter Results * GLUCOSE BLOOD, QNT (09/17/2016) GLUCOSE 82 09/17/2016 us [facility] LABORATORY Final Result * LIPID PANEL (09/17/2016) CHOLESTEROL 196 HDL 70 TRIGLYCERIDES 120 NON HDL CHOLESTEROL 126 LDL (CALCULATED) 102 09/17/2016 us Doc [facility]OR[facility] Final Result documented in this encounter Visit Diagnoses Not on filedocumented in this encounter Additional Health Concerns Infection Onset Date Last Indicated Resolved Time COVID-19 Rule Out 11/30/2023 11/30/2023 11/30/2023 7:40 PM CDT documented as of this encounter Care Teams Anesthesiologists' Assistant Relationship Specialty Start Date End Date Mich Dobson MD PCP - General FAMILY PRACTICE 01/22/16 05/14/18 Stacey Gorman FNP [address] [place] [address] PCP - General FAMILY PRACTICE 05/15/18 Stacey Gorman FNP [facility] [address] PCP - [facility] Attributed Provider 06/23/15 06/22/22 Yasmany De Dios MD [address] [address] [place] Grounds Supervisor CARDIOVASCULAR DISEASE 01/22/16 documented as of this encounter
--- OUTSIDE RECORDS SUMMARY | 2024-09-24 12:55 | XMS_ITS | Clinical Summary ---
Author Organization [facility] Address [address], [facility] [address] [place] [address] Phone Care Team Providers Care Classification Clerk Name Role Phone Stacey Gorman APRN, BIOLOGICS SPECIALIST Primary Care Provider Martin Montes De Oca MD Unavailable [phone] Allergies Active Allergy Reactions Criticality Noted Date Comments Codeine Hives,Rash,Unknown High 01/30/2012 Severe nausea and vomiting Fluoxetine Hives,Rash High 12/27/2015 Hydrocodone Hives,Nausea Medium 01/31/2016 Other reaction(s): Hives Iodinated Contrast Media Nausea High 12/27/2015 Iodine Hives,Nausea High 01/31/2016 Molds & Smuts Other (see Comments) Low 10/17/2016 Morphine Hives,Vomiting Medium 01/30/2012 Oxycodone-Acetaminophe n Hives Medium 04/09/2016 Prednisone Palpitations Low 10/16/2018 Shellfish-Derived Products Itching Medium 04/29/2019 Theophylline Other (see Comments),Itching,Naus ea,Palpitations,Shortn ess of Breath,Vomiting High 02/21/1978 Medications metoprolol Succinate (Toprol XL) 25 MG TABLET SR 24 HR Take 1 Tablet by mouth daily. 2 Active furosemide (LASIX) 80 MG Tablet Take 80 mg by mouth. 2 Active ondansetron (ZOFRAN) 8 MG Tablet Take 8 mg by mouth. 0 Active pantoprazole (PROTONIX) 40 MG Pack 40 mg by Per NG tube route as needed for Other. Active rOPINIRole (REQUIP) 0.5 MG Tablet Take 0.5-1 mg by mouth. Active ipratropium-albute rol (Combivent Respimat) 20-100 MCG/ACT Aerosol Solution take 2 Puffs by inhalation. Active rivaroxaban (XARELTO) 20 MG TabletIndications: History of Thromboembolic Disease Take 1 Tablet by mouth daily. 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 11/21/2023 Encounters Date Type Department Care Team Description 08/06/2024 Refill [facility] [address] [address] Martin Montes De Oca MD Medication Refill from Last 3 Months Family History Medical History Relation Name Comments Heart Disease Brother Diabetes Child 1 Heart Disease Child 1 Diabetes Child 2 Diabetes Father Heart Disease Father Cancer Mother breast Diabetes Mother Heart Disease Mother Heart Attack Paternal Grandfather Heart Attack Paternal Grandmother Heart Disease Sister Relation Name Status Comments Brother Child 1 Alive Child 2 Alive Father Mother Paternal Grandfather Paternal Grandmother Sister Alive Social History Tobacco Use Types Packs/Day Years Used Date Smoking Tobacco: Former Cigarettes Q uit: 1993 Smokeless Tobacco: Never Tobacco Cessation:Counseling Given: Not Answered Alcohol Use Standard Drinks/Week Comments Never 0 (1 standard drink = 0.6 oz pur e alcohol) Comments Unknown Sex and Gender Information Value Date Recorded Sex Assigned at Female 10/28/2023 9:24 AM CDT Legal Sex Female 10:59 AM CDT Gender Identity Not on file Sexual Orientation Straight 10/28/2023 9: 24 AM CDT Last Filed Vital Signs Vital Sign Reading Time Taken Comments Blood Pressure 116/70 06/04/2024 10:02 AM TYING MACHINE OPERATOR LUMBER Pulse 75 06/04/2024 10:02 AM TYING MACHINE OPERATOR LUMBER Temperature 37.5 C (99.5 F) 06/04/2024 10:02 AM TYING MACHINE OPERATOR LUMBER Respiratory Rate 18 06/04/2024 10:02 AM TYING MACHINE OPERATOR LUMBER Oxygen Saturation 97% 06/04/2024 10:02 AM TYING MACHINE OPERATOR LUMBER Inhaled Oxygen Concentration - - Weight 68 kg (150 lb) 06/04/2024 10:02 AM TYING MACHINE OPERATOR LUMBER Height 167.6 cm (5' 6 ) 06/04/2024 10:02 AM TYING MACHINE OPERATOR LUMBER Body Mass Index 24.21 06/04/2024 10:02 AM TYING MACHINE OPERATOR LUMBER Plan of Treatment Upcoming Encounters Date Type Department Care Team (Late st Contact Info) Description 12/03/2024 9:30 AM CDT Lab [facility] [address] [address] [facility] 12/03/2024 9:45 AM CDT Office Visit [facility] [address] [address] Martin Montes De Oca MD [address] [place] [address] [place] [address] Health Maintenance Due Date Last Done Comments Hepatitis C Virus (HCV) Screening 1955 Cologuard 2004 Immunochemical Fecal Occult Blood 2004 Zoster Immunization (1 of 2) 2004 Respiratory Syncytial Virus (RSV) Immunization (Adult) (1 - Risk 60-74 years 1-dose series) 2014 Pneumococcal Immunization (5 0+ years) (2 of 2 - PCV) 01/27/2020 01/26/2019 Influenza Immunization (#1) 2024 SARS-COV-2 Immunization ( - season) 2024 Mammogram 01/19/2025 01/20/2024, 01/20/2024 DEXA Bone Density 01/19/2026 01/20/2024 Colonoscopy 10/22/2028 10/22/2018 Colorectal Cancer Screening 10/22/2028 10/22/2018 TdaP Immunization Completed 08/05/2012 Hepatitis B Immunization Aged Out No longer eligible based on patient's age to complete this topic Meningococcal Immunization (ACWY) Aged Out No longer eligible b ased on patient's age to complete this topic Rotavirus Immunization Aged Out No lo nger eligible based on patient's age to complete this topic Insurance MEDICARE [facility] Care Teams Classification Clerk Relationship Specialty Start Date End Date Stacey Gorman, LABORER ELECTROPLATING, BIOLOGICS SPECIALIST [address] [place] [address] PCP - General Internal Medicine 10/08/23 Martin Montes De Oca MD [address] [place] [phone] Consulting Physician Oncology 10/08/23
--- OUTSIDE RECORDS SUMMARY | 2024-09-24 12:55 | XMS_ITS | Clinical Summary ---
Author Organization [facility] Address [facility] [place] [address] Care Team Providers Care Cook Larder Name Role Phone Yasmany De Dios MD Unavailable [phone] Tuyet Snyder Primary Care Provider Allergies Active Allergy Reactions Criticality Noted Date Comments Codeine Hives Medium 01/30/2012 Fluoxetine Hives Medium 01/31/2016 Hydrocodone Hives Medium 01/31/2016 Iodinated Contrast Media Nausea and Vomiting High Iodine Hives,Nausea and Vomiting High 01/31/2016 Molds & Smuts Eyes Water & Itch Low 10/17/2016 Morphine Hives Medium 01/30/2012 Oxycodone-Acetaminophen Hives Medium 04/09/2016 Prednisone Palpitations Low 10/16/2018 Shellfish Allergy Itching Medium 04/29/2019 Shellfish-Derived Products Itching Medium 9 Theophylline Nausea and Vomiting,Shortness of Breath High 07/02/2017 Medications * This document contains information received from the source organization and may not represent a complete record from that organization. Loratadine (CLARITIN) 10 MG CapIndications: Reactive airway disease without complication, unspecified asthma severity, unspecified whether persistent (HHS/HCC),Envir onmental and seasonal allergies Take 10 mg by mouth every evening. 90 capsule 3 10/16/19 19 Active Additional Information Patient taking differently:10 mg Oral Every evening,prn, Reported on 09/24/2024 PULSE OXIMETER, DME,Indications :Dyspnea on exertion,Chroni c obstructive pulmonary disease, unspecified COPD type ([facility] HHS/HCC),DEEJAY (obstructive sleep apnea),[place] hypoxemia 1 Device by Other route nightly. Overnight oximetry 1 Device 07/01/19 20 Active pseudoephedrine 30 MG tablet Take 1 tablet (30 mg total) by mouth every 4 (four) hours as needed for Congestion. Active OXYGEN 2 L/min by Nasal route as needed (low oxygen/shortne ss of breath). 03/26/20 21 Active Lancets Micro Thin 33G MiscIndications :Hypoglycemia 1 Device by Does not apply route 2 (two) times a day. 100 each 1 04/24/20 22 Active nitroglycerin (NITROSTAT) 0.4 MG SL tabletIndicatio ns:Chest pain Place 1 tablet (0.4 mg total) under the tongue every 5 (five) minutes as needed for Chest Pain (Maximum of 3 doses.). If no relief, contact 911. 30 tablet 04/24/20 22 Active spironolactone (ALDACTONE) 25 MG tabletIndicatio ns:Edema, unspecified type Take 1 tablet (25 mg total) by mouth daily. 90 tablet 3 11/19/19 23 Active rivaroxaban (XARELTO) 20 MG Tab tabletIndicatio ns:Chronic deep vein thrombosis (DVT) of proximal vein of left lower extremity ([facility]CC HHS/HCC),Paroxy smal atrial fibrillation ([facility] HHS/HCC) Take 1 tablet (20 mg total) by mouth daily with supper. 90 tablet 11/25/19 24 Active metoprolol succinate ER (TOPROL XL) 25 MG 24 hr tabletIndicatio ns:Benign essential hypertension Take 1 tablet (25 mg total) by mouth daily. 90 tablet 12/30/19 24 Active dicyclomine (BENTYL) 20 MG tabletIndicatio ns:Abdominal pain, unspecified abdominal location Take 1 tablet (20 mg total) by mouth 4 (four) times daily. 120 tablet 6 12/31/19 24 Active rOPINIRole (REQUIP) 0.5 MG tabletIndicatio ns:Peripheral polyneuropathy, Restless legs syndrome Take 1 tablet (0.5 mg total) by mouth 2 (two) times daily as needed. Short supply while waiting on mail order 180 tablet 3 01/01/20 24 Active Additional Information Patient not taking.Reported on 09/24/2024 furosemide (LASIX) 80 MG tabletIndicatio ns:Pulmonary HTN (CMS/HCC HHS/HCC),Unilat eral emphysema (CMS/HCC HHS/HCC) Take 1 tablet (80 mg total) by mouth daily. 90 tablet 3 01/01/20 24 Active montelukast (SINGULAIR) 10 MG tabletIndicatio ns:Unilateral emphysema (CMS/HCC HHS/HCC) Take 1 tablet (10 mg total) by mouth daily. 90 tablet 3 01/01/20 24 Active diphenhydrAMINE -APAP (TYLENOL PM) 25-500 MG Tab tablet Take 1 tablet by mouth nightly at bedtime. Active ondansetron (ZOFRAN) 8 MG tabletIndicatio ns:Nausea Take 1 tablet (8 mg total) by mouth every 8 (eight) hours as needed. FOR NAUSEA 90 tablet 3 01/22/20 24 Active methocarbamol (ROBAXIN) 750 MG TabIndications: Neck muscle spasm Take 1 tablet (750 mg total) by mouth 3 (three) times daily as needed (muscle spasms). 60 tablet 07/06/19 25 Active COMPRESSION STOCKINGS, DME,Indications :Localized swelling of both lower legs Compression wrap BLE 20 -30 mm/hg 1 Package 1 07/20/19 25 Active pantoprazole EC (PROTONIX) 40 MG tabletIndicatio ns:Gastroesopha geal reflux disease, unspecified whether esophagitis present Take 1 tablet (40 mg total) by mouth daily. 90 tablet 3 09/25/19 25 Active gabapentin (NEURONTIN) 100 MG capsuleIndicati ons:Neuropathy Take 1 capsule (100 mg total) by mouth nightly at bedtime. 30 capsule 1 09/25/19 25 Active Glucose Blood (ACCU-CHEK GISELLA PLUS) test stripIndication s:Hypoglycemia 1 strip by Other route 2 (two) times daily. 200 strip 3 04/24/20 22 025 Discontinued( Pt. elected to discontinue med) albuterol sulfate HFA (PROVENTIL HFA) 108 (90 Base) MCG/ACT inhalerIndicati ons:Unilateral emphysema ([facility]) Inhale 1 puff into the lungs every 4 (four) hours as needed for Wheezing. 18 g 5 11/19/19 23 025 Discontinued( Pt. elected to discontinue med) pantoprazole EC (PROTONIX) 40 MG tabletIndicatio ns:Gastroesopha geal reflux disease, unspecified whether esophagitis present Take 1 tablet (40 mg total) by mouth daily. 90 tablet 3 01/01/20 24 025 Discontinued( Reorder) Glucose Blood (CONTOUR NEXT TEST) test stripIndication s:Hypoglycemia after GI (gastrointestin al) surgery ([facility]) 1 strip by Other route as needed. Use as instructed 300 strip 3 01/22/20 24 025 Discontinued( Pt. 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 01/02/2024 Gastroesophageal reflux dise ase, unspecified whether esophagitis present 11/18/2022 Vitamin D deficiency 11/18/2022 Age-related osteoporosis wit hout current pathological fracture 05/09/2021 COVID-19 vaccination declined 05/09/2021 Chronic kidney disease, unspecified CKD stage COPD (chronic obstructive pu lmonary disease) ([facility]) 09/28/2019 Chronic fatigue 09/28/2019 Anemia due to vitamin B12 de ficiency, unspecified B12 deficiency type 07/06/2019 Influenza vaccination declined by patient 2018 Occasional tremors 05/05/2019 Family history of Alzheimer's disease 05/05/2019 Palpitations 12/31/2018 Anemia due to other cause, not classified 2018 Physical deconditioning 06/11/2018 Reactive airway disease with out complication, unspecified asthma severity, unspecified whether persistent ([facility]) 06/11/2018 Pulmonary HTN ([facility]) 05/15/2018 History of DVT of lower extremity 01/14/2018 Essential (hemorrhagic) thrombocythemia ([facility]) 11/14/2017 Post-menopausal 08/07/2017 Paroxysmal atrial fibrillation ([facility]) 07/02/2017 DVT (deep venous thrombosis) ([facility]) 1 Peripheral neuropathy 04/03/2017 Dyspnea on exertion 11/26/2016 Renal cyst 02/27/2016 Secondary hyperparathyroidism ([facility]) 01/12/20 16 Hypoglycemia after GI (gastrointestinal) surgery ([facility]) 01/09/2016 Presence of IVC filter 01/09/2016 Nausea 12/27/2015 Recurrent kidney stones 11/10/2015 Biliary pain 11/03/2015 Biliary stenosis 11/03/2015 Allergic rhinitis 04/17/2015 Lung nodule 08/10/2014 Nocturnal hypoxemia 08/10/2014 Coronary atherosclerosis 07/04/2014 Paroxysmal nocturnal dyspnea 01/07/2014 Edema, unspecified type 11/24/2013 Restless legs syndrome 04/21/2012 Common bile duct stricture 03/18/2012 Vitamin B12 deficiency 01/30/2012 Malabsorption ([facility]) 01/14/2012 Atherosclerotic heart diseas e of [place] coronary artery without angina pectoris Dyslipidemia Benign essential hypertension Mitral valve prolapse Resolved Problems Problem Noted Date Diagnosed Date Resolved Date Impaired fasting blood sugar 10/06/2023 09/24/2024 Facial numbness 11/24/2020 05/09/2021 Anemia, unspecified type 07/06/2019 Visit for screening mammogram 01/26/2019 03/03/2020 Acute pain of left shoulder 11/11/2018 05/09/2021 History of recent fall 11/11/201805/09 Muscle weakness (generalized) 10/29/2018 05/09/2021 Unsteady gait 10/29/2018 01/01/2024 Cigarette nicotine dependence in remission 06/11/2018 11/23/2020 Renal mass, left 02/09/2018 11/18/2022 Iron deficiency anemia 01/19/201811/18 Acute deep vein thrombosis ( DVT) of proximal vein of left lower extremity ([facility]) 01/14/2018 10/21/2018 Cough 08/25/2017 11/18/2022 Shortness of breath 11/06/2016 05/09/20 21 Feeling weak 09/17/2016 05/09/2021 Memory changes 05/14/2016 11/18/2022 Muscle cramps 05/14/2016 05/09/2021 Acute tension-type headache 04/09/2016 11/18/2022 Benign essential HTN 03/06/2016 021 Constipation 01/18/2016 10/06/2023 Upper abdominal pain 12/27/2015 021 DEEJAY (obstructive sleep apnea) 04/17/2015 10/06/2023 Overview (05/15/2018): Description: on oxygen Anxiety 12/30/2014 10/06/2023 Reactive hypoglycemia 12/30/20142020 Dysphagia 10/06/2014 11/18/2022 Daytime somnolence 09/27/2014 Pain of left lower leg 03/04/201405/09 Spasm of bowel 11/03/2013 05/09/2021 Hyperlipidemia 01/30/2012 05/09/2021 Encounters Date Type Department Care Team Description 09/24/2024 10:40 AM CDT Office Visit [facility] Family & Internal [address] [phone] Tuyet Snyder FNP Forms 09/24/2024 Travel 09/24/2024 Orders Only [facility] Family & Internal [address] [phone] Heena Alvarado MA 09/03/2024 Telephone [facility] Internal [address] [phone] Tuyet Snyder FNP Question 08/17/2024 Scan [facility] INFO SRVCS Scanned, [facility] 08/09/2024 Telephone [facility] Internal [address] [phone] Tuyet Snyder FNP Information 07/28/2024 Telephone [facility] Family & Internal [address] [phone] Tuyet Snyder FNP Information 07/20/2024 Orders Only [facility] Internal [address] [phone] Tuyet Snyder FNP 07/06/2024 Telephone [facility] Internal [address] [phone] Tuyet Snyder FNP Advice 07/06/2024 Telephone [facility] General Surgery - [address], [address] [place] [address] Simeon Pelaez MD Error 07/05/2024 Telephone [facility] & Internal [address] [phone] Tuyet Snyder, MUKUL Information from Last 3 Months Immunizations Name Administration Dates Next Due Dtap (Generic) 08/05/2012 Influenza Adult (Generic) 07/05/2020(Def erred: Patient Refused - not getting out of the house) Pneumococcal (Pneumovax 23) 01/26/2019 Tdap (Generic) 08/05/2012 Family History Medical History Relation Comments Heart Attack Brother Open Heart Brother Arthritis Father Hypertension Father Stent Cardiac Father Vision loss Father Arthritis Mother Breast Cancer Mother Hypertension Mother Miscarriages / Stillbirths Mother Stent Cardiac Mother Stroke Mother Coronary artery disease Other Diabetes Other Hyperlipidemia Other Hypertension Other Stroke Other Sudden Other Alzheimers Paternal Aunt Stent Cardiac Sister Relation Status Comments Brother Father Mother Other Paternal Aunt Sister Social History Tobacco Use Types Packs/Day Years Used Date Smoking Tobacco: Former Cigarettes Q uit: 1974 Passive Smoke Exposure: Past Smokeless Tobacco: Never Tobacco Cessation:Counseling Given: Yes Alcohol Use Standard Drinks/Week Comments No 0 [...] file Not on file Not on file Last Filed Vital Signs Vital Sign Reading Time Taken Comments Blood Pressure 116/60 09/24/2024 10:37 AM CDT Pulse 74 09/24/2024 10:37 AM CDT Temperature 37 C (98.6 F) 09/24/2024 10:37 AM CDT Respiratory Rate 20 04/13/2024 12:52 PM CDT Oxygen Saturation 96% 09/24/2024 10:37 AM CDT Inhaled Oxygen Concentration - - Weight 73.2 kg (161 lb 4.8 oz) 09/24/2024 10:37 AM CDT Height 172.7 cm (5' 8 ) 09/24/2024 10:37 AM CDT Body Mass Index 24.53 09/24/2024 10:37 AM CDT Plan of Treatment Health Maintenance Due Date Last Done Comments Hepatitis C 1972 ASCVD LDL 09/17/2017 09/17/2016, 08/22, 05/10/2015, Additional history exists Annual Medicare Wellness Visit 12/19/2019 Pneumococcal Vaccine: 65+ Years (2 of 2 - PCV) 01/27/2020 01/26/2019 DTaP, Tdap and Td Vaccines (3 - Td or Tdap) 08/05/2022 08/05/2012, 08/05/2012 COVID-19 Vaccine (1 - season) 2024 PHQ-2 (Physician [place]) 06/23/2024 10/06/2023 ASCVD Statin 10/05/2024 Postponed from 1954 (Patient Refused) RSV Immunization or 60+ Years (1 - Risk 60-74 years 1-dose series) 10/05/2024 Postponed fro m 2014 (Patient Refused) Zoster Vaccines (1 of 2) 10/05/2024 Pos tponed from 2004 (Patient Refused) Mammogram Screening 01/19/2026 01/20/2024, Colorectal Cancer Screening Colonoscopy (10 Years) 10/22/2028 10/22/2018 Dexa Scan (General) Completed 01/20/2024, 11/08/2021, 11/08/2021 Meningococcal B Vaccine Aged Out No l onger eligible based on patient's age to complete this topic Meningococcal Vaccine Aged Out No shelby winifred eligible based on patient's age to complete this topic RSV Immunizations Under 20 Months Aged Out No longer eligible based on patient's age to complete this topic Procedures Procedure Name Priority Date/Time Associated Diagnosis Comments XR CHEST PA+LAT STAT 09/24/2024 11:31 AM CDT SOB (shortness of breath) Congestive heart failure, unspecified HF chronicity, unspecified heart failure type (CMS/HCC [facility]/HCC) BONE DENSITY/DEXA Routine 01/20/2024 12: 48 PM CDT Post-menopausal Osteopenia, unspecified location MG SCREENING W MOLLY LENORE DIGI Routine 01/20/2024 12:47 PM CDT Encounter for screening mammogram for malignant neoplasm of breast COLONOSCOPY GENERIC (SCAN ORDER) Routine 10/22/2018 LIPID PANEL Routine 09/17/2016 from Last 3 Months or Most Recently Relevant to Health Maintenance Results * XR CHEST PA+LAT (09/24/2024 11:31 AM CDT) Anatomical Region Laterality Modality Chest Radiographic Jackelyn ging 09/24/2024 11:4 2 AM CDT Impressions 09/24/2024 11:43 AM CDT IMPRESSION: Stable chest, no acute findings. Ordered By: TUYET SNYDER Interpreted By: Benedict Borges MD, 09/24/2024 11:42 AM Narrative 09/24/2024 11:43 AM CDT [facility] Family [place] [address] 2 VIEWS OF THE CHEST Clinical history: Shortness of breath Comparison: January 22, 2024 2 views of the chest demonstrate the cardiac silhouette to be normal in size and appears stable. The pulmonary vessels are normally distributed. The Lungs are clear. No consolidations or effusions are seen. Procedure Note Benedict Borges MD - 09/24/2024 [facility] [place] [address] 2 VIEWS OF THE CHEST Clinical history: Shortness of breath Comparison: January 22, 2024 2 views of the chest demonstrate the cardiac silhouette to be normal insize and appears stable. The pulmonary vessels are normally distributed.The Lungs are clear. No consolidations or effusions are seen. IMPRESSION: Stable chest, no acute findings. Ordered By: TUYET SNYDER Interpreted By: Benedict Borges MD, 09/24/2024 11:42 AM Tuyet Snyder [facility] Final Result * BONE DENSITY/DEXA (01/20/2024 12:48 PM CDT) Anatomical Region Laterality Modality Bone Mammography 01/20/2024 1:33 PM CDT Impressions 01/20/2024 1:34 PM CDT IMPRESSION: WHO Classification: osteoporosis. FRAX: 12% chance of hip fracture and 33% chance of major osteoporotic fracture over the next 10 years. Referred By: TUYET SNYDER Interpreted By: Adeel Rojas MD, 01/20/2024 1:33 PM Narrative 01/20/2024 1:34 PM CDT Examination: Bone Density Axial Exam Date/Time: 01/20/2024 12:48 PM Reason For Exam: Postmenopausal osteopenia Comparison: None Findings: DEXA bone densitometry The bone mineral density (BMD) was determined by dual-energy x-ray absorptiometry, the results are as follows: AP Lumbar Spine L1 through L4 BMD Patient (GM/SQCM): 0.954 T-Score (Standard deviations from young adult peak bone density): -0.8 Right femoral neck: BMD Patient (GM/SQCM): 0.498 T-Score (Standard deviations from young adult peak bone density): -3.2 Total Right femur: BMD Patient (GM/SQCM): 0.617 T-Score (Standard deviations from young adult peak bone density): -2.7 Recommendations: All patients should ensure an adequate intake of dietary calcium and vitamin D. The NOF recommend adults under the age of 50 need 1000 mg of calcium and 400-800 IU of vitamin D daily. Effective therapy for the prevention and treatment of osteoporosis include biphosphonates. Follow-up: People with diagnosed cases of osteoporosis or at high risk for fracture should have regular bone mineral density test. For patients eligible for Medicare, routine testing is allowed once every 2 years. Testing frequency can be increased to one year for patients who have rapidly progressing disease, those who are receiving or discontinuing medical therapy to restore bone mass, or have additional risk factors. Procedure Note Adeel Rojas MD - 01/20/2024 Examination: Bone Density Axial Exam Date/Time: 01/20/2024 12:48 PM Reason For Exam: Postmenopausal osteopenia Comparison: None Findings: DEXA bone densitometry The bone mineral density (BMD) was determined bydual-energy x-ray absorptiometry, the results are as follows: AP Lumbar Spine L1 through L4 BMD Patient (GM/SQCM): 0.954 T-Score (Standard deviations from young adult peak bonedensity): -0.8 Right femoral neck: BMD Patient (GM/SQCM): 0.498 T-Score (Standard deviations from young adult peak bonedensity): -3.2 Total Right femur: BMD Patient (GM/SQCM): 0.617 T-Score (Standard deviations from young adult peak bonedensity): -2.7 Recommendations: All patients should ensure an adequate intake of dietary calcium andvitamin D. The NOF recommend adults under the age of 50 need 1000 mg ofcalcium and 400-800 IU of vitamin D daily. Effective therapy for theprevention and treatment of osteoporosis include biphosphonates. Follow-up: People with diagnosed cases of osteoporosis or at high risk for fractureshould have regular bone mineral density test. For patients eligible forMedicare, routine testing is allowed once every 2 years. Testing frequencycan be increased to one year for patients who have rapidly progressingdisease, those who are receiving or discontinuing medical therapy torestore bone mass, or have additional risk factors. IMPRESSION: WHO Classification: osteoporosis. FRAX: 12% chance of hip fracture and 33% chance of major osteoporoticfracture over the next 10 years. Referred By: TUYET SNYDER Interpreted By: Adeel Rojas MD, 01/20/2024 1:33 PM Tuyet Snyder HOUSE ADMIN DEXA Final Result * MG SCREENING W MOLLY LENORE DIGI (01/20/2024 12:47 PM CDT) Anatomical Region Laterality Modality Breast Bilateral Mammography 01/21/2024 4:07 PM CDT Impressions 01/21/2024 4:14 PM CDT IMPRESSION: No suspicious mammographic findings. Recommendation: 1. Routine Screening, Bilateral Assessment: ACR BI-RADS 2 - BENIGN FINDING(S) Ordered By: TUYET SNYDER Interpreted By: Elder Srivastava MD, 01/21/2024 4:07 PM Narrative 01/21/2024 4:14 PM CDT Examination: Screening bilateral mammogram Exam Date: 01/20/2024 12:10 PM Clinical history: Routine screening. Family history of breast cancer in her mother. Comparison: 11/08/2021, 10/07/2017 Technique: Digital screening mammography of both breasts was performed. Breast tomosynthesis acquisitions were obtained and reviewed. This study was read with the assistance of a computer-aided detection system. Tissue density: There are scattered areas of fibroglandular density. Findings: No suspicious masses, malignant appearing calcifications, skin thickening or other abnormalities are present. Scattered benign-appearing calcifications are noted. No significant change from the prior exam. us Tuyet Snyder HOUSE ADMIN MAMMO Final Result * COLONOSCOPY (10/22/2018) us Documents Scanned SCANNING Final Result * LIPID PANEL (09/17/2016) CHOLESTEROL 196 HDL 70 TRIGLYCERIDES 120 NON HDL CHOLESTEROL 126 LDL (CALCULATED) 102 09/17/2016 us Doc [facility] LABORATORY Final Result from Last 3 Months or Most Recently Relevant to Health Maintenance [facility] Advance Directives Documents on File Type Date Recorded Patient Radiotelephone Operator Expl anation Advance Directives and Living Will 11/25/2018 4:46 PM 01/16/17 POA FOR HEAL CARE Advance Directives and Living Will 10/22/2018 12:00 AM ADVANCE DIRECTIVE Advance Directives and Living Will 09/10/2018 12:00 AM ADVANCE DIRECTIVE Advance Directives and Living Will 10/17/2016 ADVANCE DIRECTIVE Advance Directives and Living Will 10/08/2016 ADVANCE DIRECTIVE Advance Directives and Living Will 09/17/2016 ADVANCE DIRECTIVE Advance Directives and Living Will 03/25/2016 ADVANCE DIRECTIVE Advance Directives and Living Will 02/21/2016 ADVANCE DIRECTIVE Advance Directives and Living Will 11/13/2015 ADVANCE DIRECTIVE Advance Directives and Living Will 08/30/2015 12:00 AM ADVANCE DIRECTIVE Advance Directives and Living Will 08/30/2015 12:00 AM ADVANCE DIRECTIVE Care Teams Cook Larder Relationship Specialty Start Date End Date MalipaulTuyetMUKUL [facility][note 3][address] [place] [address] PCP - General FAMILY PRACTICE 05/15/18 Yasmany De Dios MD [facility]. [address] [address] [place] Repair Department Supervisor CARDIOVASCULAR DISEASE 01/22/16
--- OUTSIDE RECORDS SUMMARY | 2024-09-24 12:55 | XMS_ITS | Encounter Summary ---
Author Organization [facility] Address [address] [place] [address] Care Team Providers Care Preparing Box Tender Name Role Phone Yasmany De Dios MD Unavailable [phone] Stacey Gorman Primary Care Provider [phone] Encounter Details Date Type Department Care Team (Late st Contact Info) Description [address] [facility] [address] [place], [place] [address] [place], [facility] Provider Air Quality Message Social History Tobacco Use Types Packs/Day Years Used Date Smoking Tobacco: Former Cigarettes 1.5 20 1 924 - 9814 Smokeless Tobacco: Never Alcohol Use Standard Drinks/Week Comments No 0 (1 standard drink = 0.6 oz pur e alcohol) PHQ-2 Answer Date Recorded Patient Health Questionnaire-2 Score 3 11/12/2022 Comments No Sex and Gender Information Value [...] file Not on file Not on file COVID-19 Exposure Response Date Recorded In the last 10 days, have yo u been in contact with someone who was confirmed or suspected to have Coronavirus/COVID-19? Unable to assess 12/04/2022 1:20 PM CDT documented as of this encounter Plan of Treatment Not on file documented as of this encounter Visit Diagnoses Not on filedocumented in this encounter Additional Health Concerns Infection Onset Date Last Indicated Resolved Time COVID-19 Rule Out 11/30/2023 11/30/2023 11/30/2023 7:40 PM CDT Assessment Noted Time PHQ-9 Depression Total Score: 17 023 3:20 PM CDT documented as of this encounter Care Teams Preparing Box Tender Relationship Specialty Start Date End Date Stacey Gorman FNP [address] [place] [id number] PCP - General FAMILY PRACTICE 05/15/18 Yasmany De Dios MD [facility]. [address] [place] [address] Hensel Yeast Pusher CARDIOVASCULAR DISEASE 01/22/16 documented as of this encounter
--- OUTSIDE RECORDS SUMMARY | 2024-09-24 12:55 | XMS_ITS | Clinical Summary ---
Author Organization [facility] [address] [facility] [address] Address [address] [place] [address] Care Team Providers Care Cataract Lens Generator Name Role Phone Ralph Esteves MD Unavailable [phone] Simeon Pelaez MD Unavailable [phone] Jesús Becerra MD Unavailable [phone] Marie Carbajal NP Unavailable [phone] Luiz Lance MD Unavailable [phone] Stacey Gorman NP Primary Care Provider [phone] Allergies Active Allergy Reactions Criticality Noted Date Comments Codeine Unknown,Hives Medium 01/30/2012 Fluoxetine Hives Medium Hydrocodone Hives,Nausea & Vomiting Medium 01/31/2016 Other reaction(s): Hives Hydrocodone-Acetaminop hen Iodinated Contrast Media Nausea And Vomiting High 12/27/2015 Iodine Nausea & Vomiting Low Mold Eye irritation Low 10/17/2016 Morphine Hives,Nausea & Vomiting Medium 07/02/2017 Prednisone Palpitations Low 10/16/2018 Shellfish Derived Itching Medium 04/29/2019 Theophylline Shortness of breath,Nausea & Vomiting,Chills,Fatigu e,Itching,Palpitations ,Stomach upset High 02/21/1978 Medications montenicolekast (SINGULAIR) 10 mg tablet 10 mg. 0 0 Active loratadine (CLARITIN) 10 mg tablet 10 mg. 0 0 016 Active Additional Information Patient taking differently:10 mgAs needed, Reported on 09/07/2024 furosemide (LASIX) 80 mg tablet Take 1 tablet (80 mg total) by mouth daily 80 mg daily and 40 mg prn Active rOPINIRole (REQUIP) 0.5 mg tablet Take 1 tablet (0.5 mg total) by mouth 2 (two) times a day as needed Active ondansetron (ZOFRAN) 8 mg tablet Take 1 tablet (8 mg total) by mouth every 8 (eight) hours as needed Active rivaroxaban (XARELTO) 20 mg tablet Take 1 tablet (20 mg total) by mouth daily 90 tablet 2 Active cholecalciferol, vitamin D3, 5,000 unit/mL drops Take by mouth daily Active cyanocobalamin, vitamin B-12, 5,000 mcg/mL drops Place under the tongue daily Active metoprolol XL (TOPROL-XL) 25 mg extended release tabletIndications:P remature contractions, supraventricular Take 1 tablet (25 mg total) by mouth daily 90 tablet 1 Active nitroglycerin (Nitrostat) 0.[address] 1 tablet (0.4 mg total) under the tongue as needed for chest pain 30 tablet Active ipratropium-albuter oL (Combivent Respimat) 20-100 mcg/actuation inhaler Inhale 2 puffs Active LORazepam (ATIVAN) 2 mg tablet Take 1 tablet (2 mg total) by mouth as needed for anxiety 2024 Discontinued Active Problems Problem Noted Date Diagnosed Date COPD (chronic obstructive pulmonary disease) 12/2019 Influenza vaccination declined by patient 2018 Palpitations 12/31/2018 Cigarette nicotine dependence in remission 06/11 Physical deconditioning 06/11/2018 Pulmonary HTN 05/15/2018 Renal mass, left 02/09/2018 History of DVT of lower extremity s/p IVC filter 01/14/2018 Menopause present 08/07/2017 Paroxysmal atrial fibrillation 07/02/2017 Peripheral neuropathy 04/03/2017 Memory changes 05/14/2016 Benign essential hypertension 03/06/2016 Constipation 01/18/2016 Secondary hyperparathyroidism 01/12/2016 Presence of IVC filter 01/09/2016 Recurrent kidney stones 11/10/2015 Sphincter of Oddi dysfunctio n. Chronic abdominal pain. History of multiple ERCPs with stenting. History of Tiny-en-Y gastric bypass surgery (tramadol) 11/03/2015 DEEJAY (obstructive sleep apnea) 04/17/2015 Overview (01/13/2020): Overview: Description: on oxygen Anxiety 12/30/2014 Reactive hypoglycemia 12/30/2014 Lung nodule 08/10/2014 Atherosclerosis of coronary artery 07/04/2014 Spasm of bowel 11/03/2013 Restless legs syndrome 04/21/2012 Common bile duct stricture 03/18/2012 Hyperlipidemia 01/30/2012 Assessment & Plan (02/19/2023 7:30 PM CDT): Last LDL 263 in September. Uncontrolled. Not on statins due to elevated CPK in past Vitamin B12 deficiency 01/30/2012 Malabsorption 01/14/2012 Resolved Problems Problem Noted Date Diagnosed Date Resolved Date Chronic respiratory failure with hypoxia 05/03/2022 03/05/2023 Dyslipidemia 01/13/2020 07/23/2020 Mitral valve prolapse 01/13/20202022 Family history of Alzheimer's disease 05/05/2019 07/23/2020 Occasional tremors 05/05/2019 Visit for screening mammogram 01/26/2019 07/23/2020 Acute pain of left shoulder 11/11/2018 07/23/2020 History of recent fall 11/11/201807/23 Muscle weakness (generalized) 10/29/2018 07/23/2020 Unsteady gait 10/29/2018 07/23/2020 Anemia due to vitamin B12 deficiency 01/19/2018 07/23/2020 Essential (hemorrhagic) thrombocythemia 11/14/2017 07/23/2020 Cough 08/25/2017 07/23/2020 DVT (deep venous thrombosis) 04/10/2017 07/23/2020 Shortness of breath 11/06/2016 03/05/20 23 Feeling weak 09/17/2016 07/23/2020 Acute tension-type headache 04/09/2016 07/23/2020 Hypoglycemia after GI (gastr ointestinal) surgery 01/09/2016 03/05/2023 Nausea with vomiting 12/27/2015 021 Upper abdominal pain 12/27/2015 021 Allergic rhinitis 04/17/2015 07/23/2020 Dysphagia 10/06/2014 07/23/2020 Daytime somnolence 09/27/2014 Nocturnal hypoxemia 08/10/2014 03/05/20 23 Pain of left lower leg 03/04/201407/23 Paroxysmal nocturnal dyspnea 01/07/2014 03/05/2023 Edema 11/24/2013 07/23/2020 Encounters Date Type Department Care Team Description 09/08/2024 Results Follow-Up [facility] Nephrology at [address] [facility] [place] [phone] Jesús Becerra MD Stage 3a chronic kidney disease (HCC) (Primary Dx); Secondary hyperparathyroidism 09/07/2024 12:04 PM CDT - 09/07/2024 11:59 PM CD[place] [address] Stage 3a chronic kidney disease (HCC); Secondary hyperparathyroidism Discharge Disposition: Discharge to home or self care 09/07/2024 12:00 PM CDT Lab [facility] Outpatient Lab at [address] [address] Palpitations (Primary Dx) 09/07/2024 10:45 AM CDT Office Visit [facility] Cardiology [address] [facility] [address] [place] [address] Luiz Lance MD Paroxysmal atrial fibrillation (HCC) (Primary Dx) from Last 3 Months Immunizations Immunization Administration Dates Next Due DTaP, Unspecified 08/05/2012 Pneumococcal Polysaccharide PPV23 01/26/2019 Surgical History Surgery Date Site/Laterality Comments APPENDECTOMY CHOLECYSTECTOMY GASTRIC BYPASS COLONOSCOPY KNEE ARTHROSCOPY W/ LATERAL RELEASE 06/23/1995 - 996 CATARACT EXTRACTION 06/23/2007 - 06/22/2008 COLON SURGERY 2019 and 2016 BARIATRIC SURGERY 04/04/2009 BLADDER SURGERY 06/23/1969 - 06/22/1970 ABDOMINAL SURGERY 1967 Medical History Medical History Date Comments Arrhythmia Hyperlipidemia Reactive hypoglycemia IBS (irritable bowel syndrome) Systemic lupus (HCC) COPD (chronic obstructive pulmonary disease) (HC C) Asthma Pulmonary embolus (HCC) Kidney stones GERD (gastroesophageal reflux disease) 0 Anemia 06/23/2001 Anxiety 11/23/2007 Arthritis 06/23/1995 Osteoporosis 06/23/2009 Clotting disorder 980 Cancer (HCC) 04/09/2018 Cataract 06/23/2004 Brain concussion 12/21/2013 Heart disease Rheumatic fever 1957 Thyroid disease ? Peptic ulceration 06/23/1977 Autoimmune disease ? Menstrual problem 06/23/2001 Mitral valve prolapse 01/13/2020 Paroxysmal nocturnal dyspnea 01/07/2014 History of DVT of lower extremity 01/14/2018 Hypoglycemia after GI (gastrointestinal) surgery 01/09/2016 Chronic respiratory failure with hypoxia (HCC) 1 07/03/2021 Nocturnal hypoxemia 08/10/2014 Dysmenorrhea February 1967 Emphysema of lung (HCC) ? Migraines Fall 1978 Hypertension ? Neuromuscular disorder (HCC) ? Stroke (HCC) ? Infection ? Family History Medical History Relation Name Comments COPD Brother 2 Rupert Thakur- Diabetes Brother 2 Rupert Thakur- Early Brother 2 Rupert Thakur- Heart disease Brother 2 Rupert Thakur- Learning disabilities Brother 2 Rupert Thakur-de ceased Mental illness Brother 2 Rupert Thakur- Alcohol abuse Brother 3 Kj Thakur JR. Allergy (severe) Brother 3 Kj Thakur JR. Arthritis Brother 3 jK Thakur JR. Asthma Brother 3 Kj Thakur JR. COPD Brother 3 Kj Thakur JR. Anemia Daughter 1 Venice Figueroa Asthma Daughter 1 Venice Figueroa Developmental delay Daughter 1 Venice LLio Figueroa Hyperlipidemia Daughter 1 Venice Figueroa Learning disabilities Daughter 1 Venice Figueroa Rashes / Skin problems Daughter 1 Venice Figueroa Arthritis Daughter 2 Toshia A. Polacek Asthma Daughter 2 Toshia A. Mariumk Depression Daughter 2 Toshia A. Polacek Developmental delay Daughter 2 Toshia A. Polacek Diabetes Daughter 2 Toshia A. Polacek Early Daughter 2 Toshia A. Polacek Hyperlipidemia Daughter 2 Toshia A. Polacek Hypertension Daughter 2 Toshia A. Polacek Learning disabilities Daughter 2 Toshia A. Polacek Mental illness Daughter 2 Toshia A. Polacek Rashes / Skin problems Daughter 2 Toshia A. Polace k Allergy (severe) Daughter 3 Jessi R. Polacek decea sed Arthritis Daughter 3 Jessi R. Polacek Asthma Daughter 3 Jessi R. Polacek Depression Daughter 3 Jessi R. Polacek Developmental delay Daughter 3 Jessi R. Polacek de ceased Diabetes Daughter 3 Jessi R. Polacek Hyperlipidemia Daughter 3 Jessi R. Polacek d Mental illness Daughter 3 Jessi R. Polacek d Clotting disorder Daughter 4 Stephanie Bautista- Miscarriages / Stillbirths Daughter 4 Stephanie Bautista- Rashes / Skin problems Daughter 4 Stephanieamparo Bautista- Alcohol abuse Father Kj Thakur Sr. Arthritis Father Kj Starkeyuba Sr. Depression Father Kj Starkeyuba Sr. Diabetes Father Kj Starkeyuba Sr. Hearing loss Father Kj Starkeyuba Sr. Heart attack Father Kj Thakur Sr. Heart disease Father Kj Thakur Sr. Hyperlipidemia Father Kj Starkeyuba Sr. Hypertension Father Kjbreana Starkeyuba Sr. Memory loss Father Kjbreana Starkeyuba Sr. Mental illness Father Kj WLio Carruba Sr. Alzheimer's disease Father's Sister 1 Breanna Dibbles Memory loss Father's Sister 1 Breanna Dibbles Hearing loss Father's Sister 2 Leona Crate Vision loss Father's Sister 2 Leona Crate Arthritis Mother Aisha Humphreys Carruba- d Cancer Mother Aisha Humphreys Carruba- d Depression Mother Aisha Starkeyuba- d Diabetes Mother Aisha Humphreys Carruba- d Hearing loss Mother Aisha Starkeyuba- d Heart attack Mother Aisha Humphreys Carruba- d Heart disease Mother Aisha Thakur-deceas ed Hyperlipidemia Mother Aisha Starkeyuba-decea sed Hypertension Mother Aisha Starkeyuba- d Memory loss Mother Aisha Starkeyuba- d Miscarriages / Stillbirths Mother Aisha Guzman arruba- Stroke Mother Aisha Starkeyuba- d Diabetes Mother's Brother 1 Fred Becerril ( d) Heart attack Mother's Brother 1 Fred Becerril ( d) Heart disease Mother's Brother 1 Fred Becerril (deceas ed) Hyperlipidemia Mother's Brother 1 Fred Becerril (decea sed) Diabetes Mother's Brother 2 Rivas Jone deceas ed Heart attack Mother's Brother 2 Rivas Jone deceas ed Heart disease Mother's Brother 2 Rivas Jone decea sed Arthritis Sister 2 Peggyradha Calderathal Hearing loss Sister 2 Peggyradha Calderathal Heart disease Sister 2 Peggyradha Calderathal Hyperlipidemia Sister 2 Peggy Calderathal Hypertension Sister 2 Peggy LLio Calderathal Miscarriages / Stillbirths Sister 2 Peggy Calderath al COPD Sister 3 Peggy L. Hackethal Cancer Sister 3 Peggy L. Hackethal Diabetes Sister 3 Peggy L. Hackethal Heart disease Sister 3 Peggy L. Hackethal Kidney disease Sister 3 Peggy L. Hackethal Arthritis Son 1 Elder D. Polacek III Diabetes Son 1 Elder D. Polacek III Heart disease Son 1 Elder D. Polacek III Hyperlipidemia Son 1 Elder D. Polacek III Hypertension Son 1 Elder D. Polacek III Hyperlipidemia Son 2 Jessi R. Polkhoak d Early Son 3 Elder Pierre. Polkhoak Jr. Learning disabilities Son 3 Elder Pierre. Polkhoak J r. Learning disabilities Son 4 Go Sandra Figueroa Relation Name Status Comments Brother 1 Alive Brother 2 Rupert Thakur- (Age 4 1) Brother 3 Kj Thakur JR. Daughter 1 Venice Mondragon Polreinaldo Daughter 2 Toshia Hauser Polreinaldo Daughter 3 Jessi Sofia Polkhoak Daughter 4 Stephanie Figueroa- Michele- Father Kj Thakur Sr. Alive Father's Sister 1 Breanna Navas Father's Sister 2 Leona Acevedo Mother Aisha Thakur- (A ge 81) Mother's Brother 1 Fred Becerril () Mother's Brother 2 Rivas Becerril Sister 1 Alive Sister 2 Peggy Joseph Sister 3 Peggy Ruiz Son 1 Elder Gordillo Yonyreinaldo III Son 2 Jessi Figueroa Son 3 Elder Figueroa Jr. 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 Gender Identity Female 10/13/2018 12:12 PM CDT Sexual Orientation Straight 10/13/2018 12 :12 PM CDT Obstetrics History Last Filed Vital Signs Vital Sign Reading Time Taken Comments Blood Pressure 112/70 09/07/2024 10:45 AM CDT Pulse 83 09/07/2024 10:45 AM CDT Temperature 36.6 C (97.8 F) 02/19/2023 1:34 PM CDT Respiratory Rate 18 02/05/2023 2:58 PM CDT Oxygen Saturation 97% 09/07/2024 10:45 AM CDT Inhaled Oxygen Concentration - - Weight 72 kg (158 lb 11.2 oz) 09/07/2024 10:45 A M CDT Height 167.6 cm (5' 6 ) 09/07/2024 10:45 AM CDT Body Mass Index 25.61 09/07/2024 10:45 AM CDT Plan of Treatment Health Maintenance Due Date Last Done Comments Colon Cancer Screening-Colonoscopy 1955 Hepatitis C Screening 1954 Hepatitis B Screening 1972 Zoster Vaccine (1 of 2) 2004 Well Visit 65+ 12/19/2019 Pneumococcal vaccine 65+ (2 of 2 - PCV) 01/27/2020 0 01/26/2019 DTaP/Tdap/Td Vaccine (2 - Tdap) 08/05/2022 3 Depression Screening 02/06/2024 02/05/2023, 02/06/20 23 Fall Risk Assessment 02/06/2024 02/05/2023 Breast Cancer Screening-Mammogram 01/19/2025 024, 01/20/2024 Influenza Vaccine (Season Ended) 2025 Osteoporosis Screening-Bone Density Scan 01/19/2026 01/20/2024 Procedures Procedure Name Priority Date/Time Associated Diagnosis Comments EGFR Routine 09/07/2024 12:04 PM CDT Stage 3a chronic kidney disease (HCC) Secondary hyperparathyroidism COMPREHENSIVE METABOLIC PANEL Routine 09/07/2024 12:04 PM CDT Stage 3a chronic kidney disease (HCC) Secondary hyperparathyroidism CALCIUM, IONIZED Routine 09/07/2024 12:04 PM CDT Stage 3a chronic kidney disease (HCC) Secondary hyperparathyroidism PTH Routine 09/07/2024 12:04 PM CDT Stage 3a chronic kidney disease (HCC) Secondary hyperparathyroidism from Last 3 Months Results * eGFR (09/07/2024 12:04 PM CDT) eGFR 64 >=60 mL/min/1. 73 m2 Comment: Interpretive Data Reference Interval Normal >/= 90 mL/min/1.73m2 Mildly decreased* 60 - 89 mL/min/1.73m2 Mildly to moderately decreased 45 - 59 mL/min/1.73m2 Moderately to severely decreased 30 - 44 mL/min/1.73m2 Severely decreased 15 - 29 mL/min/1.73m2 Kidney Failure < 15 mL/min/1.73m2 *Relative to young adult level Estimated glomerular filtration rate is determined by the 2020 CKD-EPI equation recommended by the National Kidney Foundation (A Unifying Approach to GFR Estimation: Recommendations of the NKF-ASK Task Force on Reassessing the Inclusion of Race in Diagnosing Kidney Disease, JASN 2020). The CKD-EPI equation should not be used for patients with unstable renal function and has not been validated in children and those over 70. Current interpretive data was last reviewed 2021. Blood 09/07/2024 12:0 4 PM CDT 09/07/2024 7:31 PM CDT Jesús Becerra MD LAB BLOOD ORDERABLES Final Re sult Performing Organization Address [facility] Co de Phone Number QUINCY [address] [place] [address] * Calcium, ionized (09/07/2024 12:04 PM CDT) Calcium, Ionized 4.64 4.50 - 5.10 mg/dL Comment:Testing performed by : [facility], [address] [facility], [place]., [address] Blood 09/07/2024 12:0 4 PM CDT 09/07/2024 10:07 PM CDT Jesús Becerra MD LAB BLOOD ORDERABLES Final Re sult Performing Organization Address [facility] Co de Phone Number QUINCY [address] Department [place] [address] * (ABNORMAL) PTH (09/07/2024 12:04 PM CDT) PTH 172(H) 15 - 65 pg/mL Blood 09/07/2024 12:0 4 PM CDT 09/07/2024 7:31 PM CDT Jesús Becerra MD LAB BLOOD ORDERABLES Final Re sult Performing Organization Address [facility]/ZIP Co de Phone Number QUINCY [place] [address] [place] [address] * Comprehensive metabolic panel (09/07/2024 12:04 PM CDT) Sodium 143 135 - 145 mmol/L Potassium, pl 3.4 3.3 - 4.9 mmol/L [facility] Chloride 101 97 - 110 mmol/L [facility] CO2 30 22 - 32 mmol/L [facility] Anion gap 12 2 - 15 mmol/L [facility] BUN 18 6 - 25 mg/dL [facility] Creatinine 0.96 0.60 - 1.10 mg/dL [facility] Glucose 80 70 - 199 mg/dL [facility] Comment: Interpretive Data Fasting glucose >/= 126 mg/dl is diagnostic for diabetes. Fasting is defined as no caloric intake for at least 8 hours. Fasting glucose between 100 mg/dl to 125 mg/dl is diagnostic of prediabetes. In a patient with classic symptoms of hyperglycemia or hyperglycemic crisis, a random glucose >/= 200 mg/dl is diagnostic for diabetes. In the absence of unequivocal hyperglycemia, results should be confirmed by repeat testing. The classification and Diagnosis of Diabetes Diabetes Care 2021; 46: S19-S40. Current interpretive data was last revised 2022. Calcium 8.9 8.5 - 10.3 mg/dL [facility] Bilirubin, total 0.7 0.1 - 1.2 mg/dL [facility] Protein, pl 7.5 6.5 - 8.5 g/dL [facility] Albumin 4.5 3.5 - 5.0 g/dL [facility] Alk phos 58 40 - 130 Units/L [facility] ALT 13 7 - 45 Units/L [facility] AST 27 10 - 45 Units/L [facility] Blood 09/07/2024 12:0 4 PM CDT 09/07/2024 7:31 PM CDT us Jesús Becerra MD LAB BLOOD ORDERABLES Final Re sult [facility] [place] [address] Department [place] [address] from Last 3 Months Insurance [place] [address] [place] [address] MEDICARE [address] MEDICARE [facility] Care Teams Cataract Lens Generator Relationship Specialty Start Date End Date Stacey Gorman NP [address] [place] [address] PCP - General Nurse Practitioner 06/25/24 Ralph Esteves MD Medical Oncologist/Hematologis t Hematology and Oncology 01/15/18 Simeon Pelaez MD [address] [address] Consulting Physician Gastroenterology 10/16/18 Jesús Becerra MD [address] [facility] [address] [place] [address] Consulting Physician Nephrology 01/12/21 Marie Carbajal NP [address] [facility] [address] [place] [address] Nurse Practitioner Neurology 02/05/23 Luiz Lance MD [address] [facility] [address] [place] [address] Consulting Physician Cardiology 02/05/23
--- OUTSIDE RECORDS SUMMARY | 2024-09-24 12:55 | XMS_ITS | Clinical Summary ---
Author Organization [facility] Address [address] [place] [address] Care Team Providers Care Parent Coach Name Role Phone Mich Dobson MD Primary Care Provide r Source Comments [facility],non-owned Affiliates and Associated Physician Practices is amultiple site organization consisting of ambulatory clinics and hospital sitesin [place], [place], [place] and [place]. This disclosure is being madepursuant to the Care Everywhere program and may not contain all information available regarding this patient. Last updated [facility] Allergies Active Allergy Reactions Criticality Noted Date Comments Codeine Skin Reactions High 12/27/2015 Severe nausea and vomiting Contrast-Iodinated Agents For Ct/Other Nausea and/or Vomiting High 12/27/2015 Fluoxetine Rash High 12/27/2015 Hydrocodone-Acetaminop hen Itching High 12/27/2015 Kdc:Acetaminophen+Oxyc odone+Tartrazine Skin Reactions High 12/27/2015 Active Problems Problem Noted Date Diagnosed Date Nausea with vomiting 12/27/2015 Upper abdominal pain 12/27/2015 Resolved Problems Problem Noted Date Diagnosed Date Resolved Date Constipation 12/27/2015 10/20/2017 Social History Tobacco Use Types Packs/Day Years Used Date Smoking Tobacco: Former Smokeless Tobacco: Never Alcohol Use Standard Drinks/Week Comments No 0 (1 standard drink = 0.6 oz pur e alcohol) Sex and Gender Information Value Date Recorded Sex Assigned at Not on file Gender Identity Not on file Sexual Orientation Not on file Last Filed Vital Signs Vital Sign Reading Time Taken Comments Blood Pressure 99/62 12/27/2015 10:38 AM CDT Pulse 81 12/27/2015 10:38 AM CDT Temperature 36.9 C (98.5 F) 12/27/2015 10:38 AM CDT Respiratory Rate 18 12/27/2015 10:38 AM CDT Oxygen Saturation - - Inhaled Oxygen Concentration - - Weight 62.4 kg (137 lb 9.6 oz) 12/27/2015 10:38 AM CDT Height 171.5 cm (5' 7.5 ) 12/27/2015 10:38 AM CD T Body Mass Index 21.23 12/27/2015 10:38 AM CDT Plan of Treatment Health Maintenance Due Date Last Done Comments BONE DENSITY TESTING 1955 COLOGUARD (AGES 45-75) - COL ON CA SCREENING 1954 COLON MONITORING 1954 COLONOSCOPY - COLON CA SCREENING 1954 CT COLONOGRAPHY - COLON CA SCREENING 1954 Colorectal Cancer Screening 1954 FIT - COLON CA SCREENING 1954 FLEX SIG - COLON CA SCREENING 1954 HEPATITIS C SCREENING 12/13/1972 DTAP/TDAP/TD VACCINES (1 - Tdap) 1973 PNEUMOCOCCAL VACCINE 50+ (1 of 1 - PCV) 2004 ZOSTER VACCINE (1 of 2) 2004 LIPID TESTING 09/17/2021 09/17/2016 MAMMOGRAM 11/09/2023 11/08/2021 COVID-19 VACCINE (1 - 2023-2 5 season) 2024 INFLUENZA VACCINE (#1) 2024 DEPRESSION SCREENING 06/23/2024 Respiratory Syncytial Virus (RSV) Vaccine Pt: or over 60 yrs (1 - 1-dose 75+ series) 2029 HEPATITIS B VACCINE Aged Out No longe r eligible based on patient's age to complete this topic HIB VACCINE Aged Out No longer eligi ble based on patient's age to complete this topic HPV VACCINE Aged Out No longer eligi ble based on patient's age to complete this topic MENINGOCOCCAL (Group B) VACC INE SHARED DECISION-MAKING Aged Out No longer eligibl e based on patient's age to complete this topic MENINGOCOCCAL GROUPS A/C/Y/W VACCINE Aged Out No longer eligible b ased on patient's age to complete this topic Care Teams Parent Coach Relationship Specialty Start Date End Date Mich Dobson MD PCP - General 11/15/15
--- OUTSIDE RECORDS SUMMARY | 2024-09-24 12:55 | XMS_ITS | Referral Summary ---
Author Organization [facility] [address] [facility] [address] Address [address] [place] [address] Care Team Providers Care Perioperative Tech Name Role Phone Ralph Esteves MD Unavailable [phone] Simeon Pelaez MD Unavailable [phone] Jesús Becerra MD Unavailable [phone] Marie Carbajal NP Unavailable [phone] Luiz Lance MD Unavailable [phone] Stacey Gorman NP Primary Care Provider [phone] Encounters Date Type Department Care Team Description 09/08/2024 Results Follow-Up [facility] Nephrology at [address] [place] [address] Jesús Becerra MD Stage 3a chronic kidney disease (HCC) (Primary Dx); Secondary hyperparathyroidism 09/07/2024 12:04 PM CDT - 09/07/2024 11:59 PM CDT Hospital Encounter [address] [address] Stage 3a chronic kidney disease (HCC); Secondary hyperparathyroidism Discharge Disposition: Discharge to home or self care 09/07/2024 12:00 PM CDT Lab [facility] Outpatient Lab at [address] [address] Palpitations (Primary Dx) 09/07/2024 10:45 AM CDT Office Visit [facility] Cardiology [address] [place] [address] Luiz Lance MD Paroxysmal atrial fibrillation (HCC) (Primary Dx) from Last 3 Months Allergies Active Allergy Reactions Criticality Noted Date [...] Vomiting,Chills,Fatigu e,Itching,Palpitations ,Stomach upset High 02/21/1978 Medications montelukast (SINGULAIR) 10 mg tablet 10 mg. 0 0 016 Active loratadine (CLARITIN) 10 mg tablet 10 mg. 0 0 016 Active Additional Information Patient taking differently:10 mgAs needed, Reported on 09/07/2024 furosemide (LASIX) 80 mg tablet Take 1 tablet (80 mg total) by mouth daily 80 mg daily and 40 mg prn 012 Active rOPINIRole (REQUIP) 0.5 mg tablet Take [...] total) by mouth daily 90 tablet 1 024 Active nitroglycerin (Nitrostat) 0.[address] 1 tablet (0.4 mg total) under the tongue as needed for chest pain 30 tablet 024 Active ipratropium-albuter oL (Combivent Respimat) 20-100 mcg/actuation inhaler Inhale 2 puffs 024 Active LORazepam (ATIVAN) 2 mg tablet Take [...] of multiple ERCPs with stenting. 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 Gender Identity Female 10/13/2018 12:12 PM CDT Sexual Orientation Straight 10/13/2018 12 :12 PM CDT Last Filed Vital Signs Vital Sign [...] 09/07/2024 10:45 AM CDT Plan of Treatment Not on file Procedures Procedure Name Priority Date/Time Associated Diagnosis [...] LAB BLOOD ORDERABLES Final Re sult [facility] [address] [place] [address] * Calcium, ionized (09/07/2024 12:04 PM CDT) Calcium, Ionized 4.64 4.50 - 5.10 mg/dL Comment:Testing performed by : [facility], [address] [facility], [place]., [address] Blood 09/07/2024 12:0 4 PM CDT 09/07/2024 10:07 PM CDT Jesús Becerra MD LAB BLOOD ORDERABLES Final Re sult Performing Organization Address [facility] Co de Phone Number [facility] [address] [place] [address] * (ABNORMAL) PTH (09/07/2024 12:04 PM CDT) PTH 172(H) 15 - 65 pg/mL Blood 09/07/2024 12:0 4 PM CDT 09/07/2024 7:31 PM CDT Jesús Becerra MD LAB BLOOD ORDERABLES Final Re sult Performing Organization Address [facility] de Phone Number [facility] [address] [place] [address] * Comprehensive metabolic panel (09/07/2024 12:04 PM CDT) Pathologist [facility] Sodium 143 135 - 145 mmol/L Potassium, pl 3.4 3.3 - 4.9 mmol/L [facility] Chloride 101 97 - 110 mmol/L [facility] CH CO2 30 22 - 32 mmol/L [facility] Anion gap 12 2 - 15 mmol/L [facility] BUN 18 6 - 25 mg/dL [facility] Creatinine 0.96 0.60 - 1.10 mg/dL [facility] Glucose 80 70 - 199 mg/dL [facility] Comment: Interpretive Data Fasting glucose >/= 126 [...] classification and Diagnosis of Diabetes Diabetes Care 202; 46: S19-S40. Current interpretive data was last revised 2022. Calcium 8.9 8.5 - 10.3 mg/dL [facility] Bilirubin, total 0.7 0.1 - 1.2 mg/dL [facility] Protein, pl 7.5 6.5 - 8.5 g/dL [...] BLOOD ORDERABLES Final Re sult [facility] [address] [place] [address] from Last 3 Months Insurance MEDICARE [facility] [address] MEDICARE MEDICARE [employer] Care Teams Perioperative Tech Relationship Specialty Start Date End Date Stacey Gorman NP [address] [place] [address] [id number] PCP - General Nurse Practitioner 06/25/24 Ralph Esteves MD Medical Oncologist/Hematologis t Hematology and Oncology 01/15/18 Simeon Pelaez MD [address] [facility] [address] [place] [address] Consulting Physician Gastroenterology 10/16/18 Jesús Becerra MD [address] [facility] [address] [place] [address] Consulting Physician Nephrology 01/12/21 Marie Carbajal NP [address] [facility] [address] [place] [address] Nurse Practitioner Neurology 02/05/23 Luiz Lance MD [address] [address] Consulting Physician Cardiology 02/05/23
--- OUTSIDE RECORDS SUMMARY | 2024-09-24 12:55 | XMS_ITS | Encounter Summary ---
Author Organization [facility] Address [facility] [place] [address] Care Team Providers Care Photocopy Operator Name Role Phone Mich Dobson MD Primary Care Provider Yasmany Vuong MD Unavailable [phone] Stacey Gorman Primary Care Provider [phone] Stacey Gorman Unavailable [phone] Encounter Details Date Type Department Care Team (Late st Contact Info) Description 10/21/2016 Abstract [facility] AT [address] [address] Alanna Son MA Social History Tobacco Use Types Packs/Day Years [...] Procedure Name Priority Date/Time Associated Diagnosis Comments BUN (OUTSIDE LAB) Routine 10/21/2016 HEMOGLOBIN Routine 10/21/2016 HEMATOCRIT Routine 10/21/2016 CREATININE Routine 10/21/2016 documented in this encounter Results * CREATININE (10/21/2016) CREATININE S/P/B 1.0 0.5 - 1.0 EGFR NON-AFR. AMER. 56 <=90 10/21/2016 us Doc [facility] Abstract LABORATORY Final Result * BUN (OUTSIDE LAB) (10/21/2016) BUN 14 10/21/2016 us Doc [facility] Abstract LAB-OUTSIDE/ABSTRACTED Edite d Result - Final * HEMATOCRIT (10/21/2016) HCT 39.7 10/21/2016 us Doc [facility] LABORATORY Final Result * Hemoglobin (10/21/2016) HGB 13.5 10/21/2016 us Doc [facility] LABORATORY Edited Resul t - Final documented in this encounter Visit Diagnoses Not on filedocumented in this encounter Additional Health Concerns Infection Onset Date Last Indicated Resolved Time COVID-19 Rule Out 11/30/2023 11/30/2023 11/30/2023 7:40 PM CDT documented as of this encounter Care Teams Photocopy Operator Relationship Specialty Start Date End Date Mich Dobson MD PCP - General FAMILY PRACTICE 01/22/16 05/14/18 Stacey Gorman FNP [address] [place] [address] PCP - General FAMILY PRACTICE 05/15/18 Stacey Gorman FNP [address] [place] [address] PCP - Med Group - MSSP Attributed Provider 06/23/15 06/22/22 Yasmany De Dios MD [address] [address] [place] [employer] Supervisor CARDIOVASCULAR DISEASE 01/22/16 documented as of this encounter
--- OUTSIDE RECORDS SUMMARY | 2024-09-24 12:55 | XMS_ITS | Encounter Summary ---
Author Organization [facility] Address [facility] [place] [address] Care Team Providers Care Claims Investigator Name Role Phone Yasmany De Dios MD Unavailable [phone] Stacey Gorman Primary Care Provider [phone] Encounter Details Date Type Department Care Team (Late st Contact Info) Description 09/24/2024 Orders Only [facility] Family & Internal Medicine [address] [address] Heena Alvarado MA Social History Tobacco Use Types Packs/Day [...] documented as of this encounter Care Teams Claims Investigator Relationship Specialty Start Date End Date Stacey Gorman FNP [facility] [place] [address] PCP - General FAMILY PRACTICE 05/15/18 Yasmany De Dios MD [facility]. [address] [address] [place] [employer] CARDIOVASCULAR DISEASE 01/22/16 documented as of this encounter
--- OUTSIDE RECORDS SUMMARY | 2024-09-24 12:55 | XMS_ITS | Encounter Summary ---
Author Organization [facility] Address [facility] [place] [address] Care Team Providers Care Cone Tender Name Role Phone Yasmany De Dios MD Unavailable [phone] Tuyet Snyder Primary Care Provider [phone] Reason for Referral * Consultation (Routine) - New Request Specialty Diagnoses / Procedures Referred By Kaz ruiz Referred To Contact ENDOCRINOLOGY Diagnoses Elevated parathyroid hormone Dyslipidemia Procedures OFFICE/OUTPATIENT NEW LOW MDM 30-44 MINUTES OFFICE/OUTPT VISIT,NEW,LEVL IV OFFICE/OUTPT VISIT,NEW,LEVL V OFFICE/OUTPT VISIT,EST,LEVL III OFFICE/OUTPT VISIT,EST,LEVL IV OFFICE/OUTPT VISIT,EST,LEVL V Tuyet Snyder FNP [address] [place], [place] [phone] Phone: tel: fax: Referral ID Status Reason Start Date Expiration Date V isits Requested Visits Authorized [id number] New Request 09/24/2024 10/25/2025 1 1 Reason for Visit * Reason Comments Forms Encounter Details Date Type Department Care Team (Late st Contact Info) Description 09/24/2024 10:40 AM CDT Office Visit [facility] Family & Internal Medicine - [place] [id number] [place] [address] Tuyet Snyder FNP [address] [place] [address] Forms Social History Tobacco Use Types Packs/Day Years [...] on file documented as of this encounter Last Filed Vital Signs Vital Sign Reading Time Taken Comments Blood Pressure 116/60 09/24/2024 10:37 AM CDT Pulse 74 09/24/2024 10:37 AM CDT Temperature 37 C (98.6 F) 09/24/2024 10:37 AM CDT Respiratory Rate - - Oxygen Saturation 96% 09/24/2024 10:37 AM CDT Inhaled Oxygen Concentration - - Weight 73.2 kg (161 lb 4.8 oz) 09/24/2024 10:37 AM CDT Height 172.7 cm (5' 8 ) 09/24/2024 10:37 AM CDT Body Mass Index 24.53 09/24/2024 10:37 AM CDT documented in this encounter Plan of Treatment Scheduled Referrals Name Type Priority Associated Diagnoses Orde r Schedule Ambulatory referral to Endocrinology (OTHER) Referral Routine Elevated parathyroid hormone Dyslipidemia Ordered: 09/24/2024 documented as of this encounter Results * XR CHEST PA+LAT (09/24/2024 11:31 AM CDT) Anatomical Region Laterality Modality Chest Radiographic Jackelyn ging 09/24/2024 11:4 2 AM CDT Impressions 09/24/2024 11:43 AM CDT IMPRESSION: Stable chest, no acute findings. Ordered By: TUYET SNYDER Interpreted By: Benedict Borges MD, 09/24/2024 11:42 AM Narrative 09/24/2024 11:43 AM CDT [facility] [place] [address] 2 VIEWS OF THE CHEST Clinical history: Shortness of breath Comparison: January 22, 2024 2 views of the chest demonstrate the cardiac silhouette to be normal in size and appears stable. The pulmonary vessels are normally distributed. The Lungs are clear. No consolidations or effusions are seen. Procedure Note Benedict Borges MD - 09/24/2024 [facility] [place] [address] 2 VIEWS OF THE CHEST Clinical history: [...] Borges MD, 09/24/2024 11:42 AM Tuyet Snyder [facility] GENERAL IMAGING Final Result documented in this encounter Visit Diagnoses Diagnosis Congestive heart failure, unspecified HF chronicity, unspecified heart failure type (CMS/HCC HHS/HCC)- Primary Pulmonary HTN (CMS/HCC HHS/HCC) Other chronic pulmonary heart diseases Benign essential hypertension Essential hypertension, benign Paroxysmal atrial fibrillation (CMS/HCC HHS/HCC) Atrial fibrillation Dyslipidemia Other and unspecified hyperlipidemia Stage 3a chronic kidney disease (CMS/HCC) Unilateral emphysema (CMS/HCC HHS/HCC) Other emphysema Essential (hemorrhagic) thrombocythemia (CMS/HCC HHS/HCC) Elevated parathyroid hormone Unspecified endocrine disorder SOB (shortness of breath) Shortness of breath Leg swelling Swelling of limb Gastroesophageal reflux disease, unspecified whether esophagitis present Neuropathy Mononeuritis of unspecified site History of DVT of lower extremity Personal history of venous thrombosis and embolism documented in this encounter Additional Health Concerns Assessment Noted Time PHQ-9 Depression Total Score: 0 10/06/19 24 11:38 AM CDT documented as of this encounter Care Teams Cone Tender Relationship Specialty Start Date End Date Tuyet Snyder FNP [address] [place] [id number] PCP - General FAMILY PRACTICE 05/15/18 Yasmany De Dios MD [facility]. [address] [address] [place] Clinical Molecular Geneticist CARDIOVASCULAR DISEASE 01/22/16 documented as of this encounter
[2024-09-24 13:15] VITALS: PULSE 80; O2SAT 97
[2024-09-24 13:20] VITALS: PULSE 94; O2SAT 96
[2024-09-24 13:40] VITALS: PULSE 84; O2SAT 97
--- NOTE | 2024-09-24 15:26 | HOMEO2EVAL ---
Evaluation was performed at [facility] Home Oxygen Evaluation RC: Home Oxygen (O2) Evaluation Start: 09/24/24 15:24 Freq: Status: Active Protocol: RPE Activity Type Activity Date Activity User E-sign Co-sign Detail Recorded Client Recorded Date Recorded By Document 09/24/24 13:15 [email or web address] [email or web address] 09/24/24 15:26 DJO Document 09/24/24 13:20 [email or web address] [email or web address] 09/24/24 15:26 DJO Document 09/24/24 13:40 [email or web address] [email or web address] 09/24/24 15:26 DJO 09/24/24 09/24/24 09/24/24 13:15 13:20 13:40 Home O2 Evaluation [Oxygen] -Test Phase Resting Exercise Resting -Oxygen Delivery Room Air Room Air Room Air [Pulse Oximetry] -Pulse Oximetry (90-100 %) 97 96 97 [Pulse Rate] -Pulse Rate (60-100 beats/min) 80 94 84 [Evaluation] -Activity Tolerance Good [Exercise] -Ambulation Distance (feet) 1,000 -Ambulation Distance (meters) 304.78 [Charges] -Evaluation Charges O2 Evaluation by Pulmonary
== END 2024-09-24 12:50 | disposition home or self-care (01) ==
PROVIDERS: PCP Nurse Practitioner Family; Visit Provider Physician Assistant
DX: G47.33 Obstructive sleep apnea (adult) (pediatric) (principal)
CPT/HCPCS: 94618